=== PATIENT | female | born 1985 | race Caucasian/White ===

== ENCOUNTER → 2018-04-03 01:25 | Emergency (ER) | payer MEDICAID, SELFPAY ==
--- NOTE | 2018-04-03 01:25 | DT_ITS ---
This patient was seen during an EMR downtime April 02, 2018 - April 09, 2018. This patient may have a combination of paper and electronic documentation or all paper documentation. All documentation is viewable within the e-chart portion of [facility] for each patient visit.
== END ==
PROVIDERS: Emergency Provider Emergency Medicine
DX: M25.531 Pain in right wrist (principal); M25.532 Pain in left wrist; F17.210 Nicotine dependence, cigarettes, uncomplicated
CPT/HCPCS: 99282

== ENCOUNTER 2018-04-22 21:26 | Emergency (ER) | payer MEDICAID, SELFPAY ==
[2018-04-22 21:27] VITALS: BP 134/76; PULSE 85; RESP 18; TEMP 36.7; O2SAT 97; BMI 33.6
--- NOTE | 2018-04-22 22:22 | ED.DCSUM_ITS ---
- ER Visit Summary Date of Service: 04/22/18 Chief Complaint: Cough, sore throat History of Present Illness: The patient is a 32 F presents to the emergency department cough and sore throat. Patient had symptoms for the past 3 days. She is a mild sore throat and productive cough. She denies any fevers but has had chills and sweats. The patient does smoke but denies any history of lung disease. She has had no shortness of breath or chest pain. She denies orthopnea or weight gain. Physical Examination: Vital signs reviewed General: Well-nourished, well-developed Head: Normocephalic, atraumatic Eyes: Pupils equal and reactive, extraocular muscles intact Neck, supple, no lymphadenopathy Heart: Regular rate and rhythm Respiratory: Mild wheezing, clear bilaterally Abdomen: Soft, nontender, nondistended, no peritoneal signs Back: Nontender Extremities: Nontender, no edema, no cords Skin: Normal color no rash Neuro: Alert and oriented, no focal or lateralizing deficits Test Results: [] Emergency Department Course and Treatment: Clinically, if the patient likely has infectious bronchitis. She is wheezing all lung sanchez. She is a productive sputum. Her posterior pharynx is widely patent. Patient be treated with azithromycin and prednisone burst. She will continue to use her inhaler at home. She will be discharged. Treatment Plan: [] Disposition: Discharge Impression: 1. Bronchitis This note was generated with [employer] dictation software. It may contain incorrect words, spelling, and punctuation that were not noted in review of the chart prior to signing ED Disposition - Plan for ED Patient: Chief Complaint: Cold Sx Instructions: ED Upper Resp Infec Abx Tx Prescriptions: Azithromycin [Zithromax] 250 mg PO DAILY #4 tab Prednisone 10 mg PO UD #33 tab Referrals: Care Physician,No Primary [Primary Care Provider] -
[2018-04-22] MEDS: Azithromycin 250 MG Tablet 500 MG PO (22:43)
[2018-04-22] MEDS: predniSONE 20 MG Tablet 60 MG PO (22:43)
[2018-04-22 22:48] VITALS: PULSE 78; RESP 14; O2SAT 100
== END 2018-04-22 23:15 | disposition home or self-care (01) ==
PROVIDERS: Emergency Provider Emergency Medicine
DX: J40 Bronchitis, not specified as acute or chronic (principal); Z72.0 Tobacco use
CPT/HCPCS: 99282

== ENCOUNTER 2024-10-23 11:15 | Inpatient (IN) | payer MEDICAID, SELFPAY ==
[2024-10-23] VITALS (16 sets, daily range): BP systolic 110–139; BP diastolic 75–100; PULSE 109–154; RESP 19–26; TEMP 36.1–37.2; O2SAT 92–97; BMI 44.1; BMI 44.4
--- NOTE | 2024-10-23 11:32 | RAD_ITS ---
INDICATION: cough EXAMINATION/TECHNIQUE: X-RAY - XR Chest 2 Views COMPARISON: No relevant prior comparison study available FINDINGS: LINES/DEVICES: None. LUNGS: There are patchy opacities throughout the left mid and lower lung. There is a 1.6 cm nodular opacity within the left midlung as well. No pneumothorax. MEDIASTINUM AND CARDIOVASCULAR STRUCTURES: Cardiac silhouette not enlarged. Central airways and mediastinal contour are unremarkable. BONES AND SOFT TISSUES: Unremarkable. RAD/Chest PA and Lateral IMPRESSION: Patchy opacities within the left mid and lower lung with an appearance suggestive of pneumonia. 1.6 cm nodular opacity within the left midlung, may be secondary to a confluence of shadows, cannot exclude underlying nodule, recommend follow-up chest radiograph in 6-[address] for further characterization. Electronically Signed: Tia So MD at 12:31 EST ,
--- NOTE | 2024-10-23 11:33 | EKG12_ITS ---
Test Reason : SOB Blood Pressure : */* mmHG Vent. Rate : 126 BPM Atrial Rate : 126 BPM P-R Int : 112 ms QRS Dur : 88 ms QT Int : 314 ms P-R-T Axes : 62 -13 28 degrees QTcB Int : 454 ms Sinus tachycardia Otherwise normal ECG Confirmed by KONG SMITH, FLACA ([id number]), newspaper editor MARKEL FRANCISCO ([id number]) on 10/25/2024 9:35:41 AM Referred By: Confirmed By: FLACA TRIANA MD
[2024-10-23] MEDS: Ipratropium/Albuterol Sulfate 3 ML AMPUL.NEB INHALATION (11:36)
--- NOTE | 2024-10-23 11:48 | ED.VIS.DYS ---
HPI History of Present Illness Chief Complaint: Shortness of Breath Informant: patient Narrative Narrative: Patient is a 39-year-old female who is currently 25 weeks (fourth ) presenting with worsening left-sided back pain, shortness of breath difficulty breathing. Patient states she developed URI symptoms about a week ago. She has had a worsening cough and shortness of breath. States she went to [facility] 2 days ago where she had two-view chest x-ray and they told her she had bronchitis but since she is she could not take anything for it. She notes that she does have albuterol inhaler and nebulizer solution which has been using at home but she did run out of her nebulizer solution. She states that she feels that she pulled a muscle so she is having increased pain with coughing. She says because of the pain she cannot cough effectively and does not feel like she is getting any sputum out. She states that she started having pain in her left side of her neck that is going into her lung anytime she takes a deep breath. Denies any fever. Denies any hemoptysis. Denies any lower abdominal discomfort, vaginal bleeding or leakage of fluid. Denies any change in activity as she is . I plan on delivering at this hospital with [facility] AGRONOMY MANAGER. Denies any history of DVT or PE. Denies any lower extremity swelling. Patient is a smoker and continues to smoke tobacco. [facility] Medical History (Updated 10/23/24 @ 15:[address] Reyna Watt, DO) Drug abuse in remission Home Medications ?Medication ?Instructions ?Recorded ?Last Taken ?Type vitamin no.49-iron 1 tab PO DAILY 10/23/24 Unknown History fum-folic acid 6.75 mg iron-200 mcg tablet (Mini ) Allergy/AdvReac Type Severity Reaction Status Date / Time codeine Allergy Itching Verified 10/23/24 11:16 tramadol HCl (From Ultram) Allergy Rash Verified 10/23/24 11:16 naproxen AdvReac Upset Verified 10/23/24 11:16 Stomach Social History (Updated 10/23/24 @ 12:03 by Ekta Cotter) household members: significant other and children Smoking Status: Current every day smoker tobacco type: cigarettes ROS ROS ED Constitutional Constitutional ED: Denies chills or fever(s) ENT ENT ED: Reports rhinorrhea and other Details: congestion ; Denies sore throat Cardiovascular Cardiovascular: Reports chest pain; Denies palpitations or racing heartbeat Respiratory/Chest Respiratory/Chest: Reports cough, dyspnea and sputum Gastrointestinal Gastrointestinal: Reports abdominal pain and other Details: Patient is complain of abdominal pain associated with frequent coughing ; Denies diarrhea, nausea or vomiting Genitourinary Genitourinary ED: Reports other Details: Denies any vaginal bleeding or leakage of fluids, 25 weeks ; Denies dysuria Musculoskeletal Musculoskeletal: Reports back pain, myalgias and neck pain Integumentary Denies rash Neurologic Neurologic: Denies paresthesias or weakness Psychiatric Psychiatric: Reports anxiety Hematologic/Lymphatic Hematologic/Lymphatic: Denies easy bleeding or easy bruising EXAM Physical Exam Const Vital Signs: 10/23/24 11:15 10/23/24 11:15 10/23/24 11:35 Temperature 97 F L Temperature Source Temporal Pulse Rate 154 H 136 H Respiratory Rate 26 H Respiratory Effort Respiratory Pattern Blood Pressure 136/100 H Blood Pressure Mean 112 Pulse Ox 94 93 Oxygen Delivery Method Room Air Room Air Oxygen Flow Rate (L/min) 10/23/24 11:35 10/23/24 12:05 10/23/24 12:18 Temperature 98.4 F Temperature Source Oral Pulse Rate 128 H 137 H Respiratory Rate 24 H 23 H Respiratory Effort Short of Breath Respiratory Pattern Tachypnea Blood Pressure 138/93 H Blood Pressure Mean 108 Pulse Ox 94 Oxygen Delivery Method Room Air Room Air Oxygen Flow Rate (L/min) 10/23/24 12:25 10/23/24 12:25 10/23/24 13:00 Temperature 98.4 F Temperature Source Oral Pulse Rate 136 H 134 H Respiratory Rate 22 H 19 H Respiratory Effort Respiratory Pattern Blood Pressure 139/76 H Blood Pressure Mean 97 Pulse Ox 93 92 Oxygen Delivery Method Room Air Nasal Cannula Oxygen Flow Rate (L/min) 2 10/23/24 14:00 Temperature 98.5 F Temperature Source Oral Pulse Rate 114 H Respiratory Rate 22 H Respiratory Effort Respiratory Pattern Blood Pressure 120/84 H Blood Pressure Mean 96 Pulse Ox 94 Oxygen Delivery Method Nasal Cannula Oxygen Flow Rate (L/min) 2 Positive well nourished and well developed General Appearance ED: well developed HEENT Reports moist mucous membranes HEENT Narrative: Mild injection of the posterior oropharynx present. No tonsillar exudate or edema appreciated atraumatic Eyes PERRL Neck supple and no JVD Resp Resp Narrative: Mild tachypnea. Coarse wet cough on exam. Rhonchorous breath sounds at the bases within expiratory wheezing present on the right. Effort and Inspection: pain with movement Cardio regular rhythm and no murmurs Rate: tachycardic GI non-tender and non-distended Extremity normal to inspection Extremity Narrative: 2+ DP pulses, 2+ radial pulses General Extremety ED: Negative for edema or tenderness General Extremity: Negative for edema Neuro oriented x3 Sensorium / Orientation: alert Speech: speech normal Psych Psych Narrative: Patient mitts to feeling very worked up because of her respiratory symptoms and also document with her significant other Mood & Affect: anxious and tearful Skin no wounds MDM MDM MDM Narrative Medical decision making narrative: Patient evaluated for increased shortness of breath, cough and chest pain associated with her coughing. Upon arrival patient has a minimally elevated blood pressure 136/100 and is tachycardic. She is 93 to 94% on room air. Patient has coarse and wheezy breath sounds and is very worked up. She has prodrome of viral symptoms and while considered PE I have a lower suspicion for this given her HPI. Patient is given DuoNeb and IV fluids. Will reevaluate see if she needs further treatment. Chest x-ray, troponin, BMP and CBC is obtained. Patient does have some improvements with DuoNeb in the ER. EKG shows sinus tachycardia. No strain pattern. Out to be x-ray reviewed by myself shows left lower lobe pneumonia. This is consistent with her presentation. Has a mild leukocytosis 11.8. Will add on a lactate given infection and tachycardia. Is given Tylenol and a dose of morphine for pain control. Will be given a second albuterol treatment. She did seem to improve somewhat with DuoNeb. Patient ordered an additional albuterol aerosol. With pain control starting a cough devonte sputum. Patient assessed positive for influenza A. She then son tell me that her 1-year-old was recently diagnosed influenza A as well. Patient does dip with her O2 saturation down to 89%. Placed on 2 L. Started on Rocephin, azithromycin, Tamiflu and given Solu-Medrol. She is ordered second liter of IV fluids. Will be admitted for further respiratory treatments, antibiotics and oxygen. She is agreeable this plan of care. I did speak with Dr. Madrigal, [facility] AGRONOMY MANAGER on-call who is agreeable with this treatment plan. I did let her know that we obtain heart tones which were normal. She states she is available for consult if the medicine team has any questions. Lab Data Attestation: I reviewed the patient's lab results. Labs: Laboratory Results - last 24 hr 10/23/24 10/23/24 11:56 12:27 WBC 11.8 H RBC 3.81 L Hgb 11.8 L Hct 34.1 L MCV 89.5 MCH 31.0 MCHC 34.6 RDW Std Deviation 42.8 RDW Coeff of Matthias 13.0 Plt Count 350 MPV 9.7 Immature Gran % (Auto) 0.500 Neut % (Auto) 86.1 H Lymph % (Auto) 10.2 L [place] % (Auto) 2.3 Eos % (Auto) 0.7 Baso % (Auto) 0.2 Absolute Neuts (auto) 10.2 H Absolute Lymphs (auto) 1.21 Nucleated RBC % 0 Sodium 135 L Potassium 3.2 L Chloride 105 Carbon Dioxide 21.0 Anion Gap 9 BUN 6 L Creatinine 0.37 L Estim Creat Clear Calc 246.85 Est GFR (MDRD) Af Amer 249 Est GFR (MDRD) Non-Af 206 BUN/Creatinine Ratio 16.2 Glucose 116 H Lactic Acid 2.0 Calcium 8.3 L Total Bilirubin 0.50 Direct Bilirubin 0.18 AST 53 H ALT 34 Alkaline Phosphatase 116 Troponin I High Sens 8 Total Protein 6.8 Albumin 2.5 L Globulin 4.3 H Radiography Chest X-Ray - ED: 2 View, Read by ED Physician, Read by Radiologist and Left Infiltrate Diagnostic Testing: Clinical Impression(s) from Imaging Studies Chest X-Ray 10/23/24 11:32 IMPRESSION: Patchy opacities within the left mid and lower lung with an appearance suggestive of pneumonia. 1.6 cm nodular opacity within the left midlung, may be secondary to a confluence of shadows, cannot exclude underlying nodule, recommend follow-up chest radiograph in 6-[address] for further characterization. Electronically Signed: Tia So MD at 12:31 EST , Rhythm Strip Rhythm Strip: Sinus Tach Rate: 126 Ectopy: None EKG Initial EKG: Attestation: I personally reviewed and interpreted this EKG as follows: Interpretation: Sinus Tachycardia Comments: Sinus tachycardia rate of 126 bpm Normal axis Normal intervals Normal ST segments Compared to prior EKG from 08/19/2016 patient is now tachycardic Management Discussion w/another healthcare provider: Hospitalist and [facility] Discharge Plan Triage Chief Complaint: Shortness of Breath ED Provider: Reyna Watt Dx/Rx/DC Orders Clinical Impression: Influenza A, Left lower lobe pneumonia, Tachycardia, 25 weeks gestation of Primary Care Provider: Care Physician,No Primary Disposition Disposition: Acute Care Hospital [facility]
[2024-10-23] MEDS: 0.9% Normal Saline (1000mL) 1,000 ML 999 ML IV ×2 (11:54→14:59)
[2024-10-23 12:06] LABS: Absolute Lymphocyte Count 1.21 X10^3/uL (0.83-4.51); Absolute Neutrophil Count 10.2 X10^3/uL (2.0-7.7); Basophil# 0.02 X10^3/uL; Basophil% 0.2 % (0-1); Eosinophil# 0.08 X10^3/uL; Eosinophils% 0.7 % (0-5); Hematocrit 34.1 % (37-47); Hemoglobin 11.8 g/dL (12.0-15.0); Lymphocyte # 1.21 X10^3/ul (0.83-4.51); Lymphocyte % 10.2 % (19-41); Mean Corp Hgb Conc 34.6 g/dL (32-36); Mean Corpuscular Volume 89.5 fL (81-99); Mean Platelet Vol. 9.7 fl (6.2-12.0); Monocyte# 0.27 X10^3/uL; Monocyte% 2.3 % (0-10); NRBC Flagged by Analyzer 0 % (0-5); Neutrophil % 86.1 % (47-70); Platelet Count 350 K/mm3 (150-450); RBC Distribution Width SD 42.8 fl (35.1-43.9); Red Blood Count 3.81 M/mm3 (4.2-5.4); White Blood Count 11.8 K/mm3 (4.4-11.0)
[2024-10-23] MEDS: Acetaminophen 325 MG Tablet 650 MG PO (12:20)
[2024-10-23 12:21] LABS: AST(SGOT) 53 U/L (15-37); Alanine Aminotransfer ALT/SGPT 34 U/L (13-56); Albumin, Serum 2.5 g/dL (3.2-5.0); Alkaline Phosphatase 116 U/L (45-117); Anion Gap 9 (5-15); BUN 6 mg/dL (7-18); BUN/Creat Ratio 16.2 RATIO (10-20); Bilirubin, Direct 0.18 mg/dL (0.00-0.30); Calcium,Total 8.3 mg/dL (8.5-10.1); Chloride 105 mmol/L (98-107); Creatinine, Serum 0.37 mg/dL (0.55-1.02); EST Glomerular Filtration Rate 206 mL/min (>60); Est Glom Filt Rate - Afr Amer 249 mL/min (>60); Estimated Creatinine Clearance 246.85 ml/min; Globulin 4.3 g/dL (2.2-4.2); Glucose 116 mg/dL (74-106); Potassium 3.2 mmol/L (3.5-5.1); Protein, Total 6.8 g/dL (6.4-8.2); Sodium Level 135 mmol/L (136-145); Troponin-I HS 8 pg/mL (3.0-54.0)
[2024-10-23] MEDS: Albuterol 2.5 MG/3 ML VIAL.NEB. INHALATION ×2 (12:25→23:35)
[2024-10-23] MEDS: morphine 8 MG/ML Syringe 6 MG IV (12:32)
[2024-10-23] MEDS: Ondansetron 4 MG/2 ML Vial IV (12:32)
--- NOTE | 2024-10-23 12:42 | ED.RN ---
Patient placed on 2L NC per Dr. Watt's VO.
[2024-10-23] MEDS: Ceftriaxone 1 GM/50 ML BAG IV (13:25)
[2024-10-23] MEDS: Oseltamivir Phosphate 75 MG Capsule PO (13:25)
[2024-10-23] MEDS: MethylPREDNISolone 125 MG/2 ML Vial IV (13:25)
--- NOTE | 2024-10-23 13:26 | ED.RN ---
Patient given cup for sputum culture and instructed on how to give sample when able to
--- NOTE | 2024-10-23 14:12 | HP.PCM.HOS_ITS ---
HPI - General General Date of Admission: 10/23/24 Date of Service: 10/23/24 Chief Complaint: Shortness of breath HPI Narrative BASSAM OSBORN, is a 39 F with history of chronic nicotine use [half pack a day], prior homelessness, prior history of drug abuse presently in the second trimester, who presents to the ED with concerns regarding progressive shortness of breath, cough and chest pain for the last 3 to 4 days. She has been ongoing cough, with associated chest pain mostly over her left chest and back, aggravated by coughing for the last 3 to 4 days. She previously visited [place] ED for similar complaints, evaluation for pneumonia was negative, no swabs were done, she was discharged with albuterol inhaler. She has been using the inhaler but without any improvement. Her 1-year-old daughter was diagnosed with influenza A infection 2 days back Today she presented to the ED given concerns of progressive shortness of breath, and discomfort. Social status: Lives with her fianc?, has a history of prior homelessness, has 3 kids, the elder 2 kids have been adopted to other families, she has 1 child At the time of presentatin in the ED, Blood pressure 139/76, pulse 134, respiratory rate 19, oxygen saturation 92% on 2 L nasal cannula, WBC 11.8, hemoglobin 11.8, platelet 350, sodium 135, potassium 3.2, BUN 6, creatinine 0.3, glucose 116, calcium 8.3, AST 53, ALT 34, albumin 2.5, globulin 4.3 [facility] Medical History (Updated 10/23/24 @ 14:[address] Chirag Diaz MD) Drug abuse in remission Home Medications ?Medication ?Instructions ?Recorded ?Last Taken ?Type vitamin no.49-iron 1 tab PO DAILY 10/23/24 Unknown History fum-folic acid 6.75 mg iron-200 mcg tablet (Mini ) Allergy/AdvReac Type Severity Reaction Status Date / Time codeine Allergy Itching Verified 10/23/24 11:16 tramadol HCl (From Ultram) Allergy Rash Verified 10/23/24 11:16 naproxen AdvReac Upset Verified 10/23/24 11:16 Stomach Social History (Updated 10/23/24 @ 12:03 by Ekta Cotter) household members: significant other and children Smoking Status: Current every day smoker tobacco type: cigarettes ROS Review of Systems ROS Unobtainable: Denies due to encephalopathy, due to endotracheal tube, due to mental condition, due to mental status or other Constitutional Constitutional: Reports anorexia and fatigue Eyes Eyes: Denies blurry vision, change in eye color, change in vision, discharge from eye(s), double vision, erythema, eye pain, loss of vision or other ENT HEENT: Denies abnormal hearing, dysphagia, ear pain, epistaxis, headache(s), hearing loss, nasal congestion, nasal discharge, post nasal drip, sinus pressure, sore throat or other Cardiovascular Cardiovascular: Denies chest pain, claudication, dyspnea on exertion, edema, lightheadedness, orthopnea, palpitations, paroxysmal nocturnal dyspnea, rapid heart rate, syncope or other Respiratory/Chest Respiratory/Chest: Reports excessive phlegm production, productive cough, shortness of breath at rest and shortness of breath with exertion Gastrointestinal Gastrointestinal: Denies abdominal pain, coffee ground emesis, constipation, diarrhea, dyspepsia, hematemesis, hematochezia, loose stools, melena, nausea, vomiting or other Genitourinary Genitourinary: Denies burning urination, difficulty urinating, dysuria, hematuria, nocturia, urinary frequency, urinary hesitancy, urinary incontinence, urinary urgency or other Musculoskeletal Musculoskeletal: Denies arthralgias, back pain, joint pain, joint stiffness, joint swelling, myalgias, neck pain or other Neurologic Neurologic: Denies abnormal gait, abnormal speech, confusion, disequilibrium, dizziness, focal weakness, headache(s), numbness, paresthesias, seizure-like activity, seizures, syncope, tingling, tremor(s) or other Psychiatric Psychiatric: Denies anxiety, depression, homicidal ideation, suicidal ideation or other Endocrine Endocrinology: Denies change in body appearance, cold intolerance, excessive sweating, heat intolerance, polydipsia, polyuria or other Vital Signs Vital Signs Vital Signs: 10/23/24 11:15 10/23/24 11:15 10/23/24 11:35 Temperature 97 F L Temperature Source Temporal Pulse Rate 154 H 136 H Respiratory Rate 26 H Respiratory Effort Respiratory Pattern Blood Pressure 136/100 H Blood Pressure Mean 112 Pulse Ox 94 93 Oxygen Delivery Method Room Air Room Air Oxygen Flow Rate (L/min) 10/23/24 11:35 10/23/24 12:05 10/23/24 12:18 Temperature 98.4 F Temperature Source Oral Pulse Rate 128 H 137 H Respiratory Rate 24 H 23 H Respiratory Effort Short of Breath Respiratory Pattern Tachypnea Blood Pressure 138/93 H Blood Pressure Mean 108 Pulse Ox 94 Oxygen Delivery Method Room Air Room Air Oxygen Flow Rate (L/min) 10/23/24 12:25 10/23/24 12:25 10/23/24 13:00 Temperature 98.4 F Temperature Source Oral Pulse Rate 136 H 134 H Respiratory Rate 22 H 19 H Respiratory Effort Respiratory Pattern Blood Pressure 139/76 H Blood Pressure Mean 97 Pulse Ox 93 92 Oxygen Delivery Method Room Air Nasal Cannula Oxygen Flow Rate (L/min) 2 Weight Weight: 248 lb 14.43 oz Body Mass Index (BMI) 44.1 Physical Exam HEENT normocephalic Eyes PERRL Neck no lymphadenopathy Resp normal respiratory effort, no retractions and no use of accessory muscles Resp Narrative: no crepitations or added sounds heard Cardio regular rate and regular rhythm GI normal to inspection, nondistended, normoactive bowel sounds Extremity normal to inspection Neuro oriented x3 and CN's II-XII intact bilaterally Psych affect normal Results Medical Records Data Attestation: I reviewed the patient's medical records Lab / Micro Data Attestation: I reviewed the patient's lab results. 10/23/24 11:56 10/23/24 11:56 Labs: Laboratory Results - last 24 hr 10/23/24 11:56: WBC 11.8 H, RBC 3.81 L, Hgb 11.8 L, Hct 34.1 L, MCV 89.5, MCH 31.0, MCHC 34.6, RDW Std Deviation 42.8, RDW Coeff of Matthias 13.0, Plt Count 350, MPV 9.7, Immature Gran % (Auto) 0.500, Neut % (Auto) 86.1 H, Lymph % (Auto) 10.2 L, [place] % (Auto) 2.3, Eos % (Auto) 0.7, Baso % (Auto) 0.2, Absolute Neuts (auto) 10.2 H, Absolute Lymphs (auto) 1.21, Nucleated RBC % 0, Sodium 135 L, Potassium 3.2 L, Chloride 105, Carbon Dioxide 21.0, Anion Gap 9, BUN 6 L, Creatinine 0.37 L, Estim Creat Clear Calc 246.85, Est GFR (MDRD) Af Amer 249, Est GFR (MDRD) Non-Af 206, BUN/Creatinine Ratio 16.2, Glucose 116 H, Calcium 8.3 L, Total Bilirubin 0.50, Direct Bilirubin 0.18, AST 53 H, ALT 34, Alkaline Phosphatase 116, Troponin I High Sens 8, Total Protein 6.8, Albumin 2.5 L, Globulin 4.3 H 10/23/24 12:27: Lactic Acid 2.0 Micro: Microbiology 10/23/24 11:56 Mucosa - Nose SARS-CoV-2, Influenza & RSV (PCR) - Final Influenzae A Rhythm Strip Rhythm Strip: Sinus Tach Rate: 126 Ectopy: None Imaging Radiology Impression Chest X-Ray 10/23/24 11:32 IMPRESSION: Patchy opacities within the left mid and lower lung with an appearance suggestive of pneumonia. 1.6 cm nodular opacity within the left midlung, may be secondary to a confluence of shadows, cannot exclude underlying nodule, recommend follow-up chest radiograph in 6-[address] for further characterization. Electronically Signed: Tia So MD at 12:31 EST , Assessment & Plan Assessment/Plan (1) Influenza A: PLAN: Plan 39-year-old female, in secondary MrBuddy Alba presents to the ED with concerns regarding progressive shortness of breath and was not found to have influenza A infection. Her 1-year-old daughter also has similar infection, given her timeline of presentation [symptoms started more than a week back and she presented [place] ED at the time] her presentation could be due to secondary infection with resulting deterioration of her symptoms. She is also having acute hypoxic respiratory failure and requiring oxygen supplementation. She is being admitted for further management for the same. 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
[2024-10-23] MEDS: Azithromycin 500 MG in 0.9% Normal Saline (250mL Bag) 250 ML 250 MG IV (14:20)
[2024-10-23 16:27] LABS: Reflex Lactate? Y
[2024-10-23] MEDS: Ensure Plus High Protein 120 ML LIQUID PO (17:11)
[2024-10-23 17:20] LABS: Lactic Acid 1.9 mmol/L (0.4-1.9)
[2024-10-23] MEDS: Ketorolac 15 MG/ML Vial IV (19:08)
[2024-10-23] MEDS: guaiFENesin 1,200 MG Tablet 1200 MG PO (22:06)
[2024-10-24] VITALS (29 sets, daily range): BP systolic 96–152; BP diastolic 48–91; PULSE 95–129; RESP 19–32; TEMP 36–37.1; O2SAT 90–98
[2024-10-24] MEDS: Albuterol 2.5 MG/3 ML VIAL.NEB. INHALATION ×2 (04:35→07:06)
[2024-10-24 05:09] LABS: Absolute Lymphocyte Count 1.14 X10^3/uL (0.83-4.51); Absolute Neutrophil Count 15.3 X10^3/uL (2.0-7.7); Basophil# 0.05 X10^3/uL; Basophil% 0.3 % (0-1); Eosinophil# 0.02 X10^3/uL; Eosinophils% 0.1 % (0-5); Hemoglobin 10.5 g/dL (12.0-15.0); Lymphocyte # 1.14 X10^3/ul (0.83-4.51); Lymphocyte % 6.8 % (19-41); Mean Corp Hgb Conc 33.9 g/dL (32-36); Mean Corpuscular Hgb 30.4 pg (27.0-32.0); Mean Corpuscular Volume 89.9 fL (81-99); Mean Platelet Vol. 9.9 fl (6.2-12.0); Monocyte# 0.18 X10^3/uL; Monocyte% 1.1 % (0-10); NRBC Flagged by Analyzer 0 % (0-5); Neutrophil # 15.31 X10^3/uL (2.7-7.7); Neutrophil % 91.4 % (47-70); POSITIVE MORPHOLOGY YES; Platelet Count 302 K/mm3 (150-450); RBC Distribution Width CV 13.1 % (11.6-14.6); RBC Distribution Width SD 43.1 fl (35.1-43.9); Red Blood Count 3.45 M/mm3 (4.2-5.4); White Blood Count 16.8 K/mm3 (4.4-11.0)
[2024-10-24 05:38] LABS: AST(SGOT) 33 U/L (15-37); Alanine Aminotransfer ALT/SGPT 27 U/L (13-56); Albumin, Serum 2.2 g/dL (3.2-5.0); Alkaline Phosphatase 87 U/L (45-117); Anion Gap 8 (5-15); BUN 5 mg/dL (7-18); BUN/Creat Ratio 14.3 RATIO (10-20); Bilirubin, Direct 0.21 mg/dL (0.00-0.30); Calcium,Total 8.7 mg/dL (8.5-10.1); Chloride 104 mmol/L (98-107); Creatinine, Serum 0.35 mg/dL (0.55-1.02); EST Glomerular Filtration Rate 221 mL/min (>60); Est Glom Filt Rate - Afr Amer 268 mL/min (>60); Estimated Creatinine Clearance 262.25 ml/min; Globulin 4.2 g/dL (2.2-4.2); Glucose 129 mg/dL (74-106); Magnesium 1.4 mg/dL (1.6-2.6); Phosphorus 2.6 mg/dL (2.5-4.9); Protein, Total 6.4 g/dL (6.4-8.2); Sodium Level 133 mmol/L (136-145); Thyroid Stim Hormone (TSH) 0.613 uIU/mL (0.358-3.740)
[2024-10-24 05:54] LABS: Prothrombin Time (Protime)PT. 13.1 SECONDS (11.7-14.9)
--- NOTE | 2024-10-24 06:35 | PCM.PN.HOSP ---
Reason for Visit Reason for Visit: Diagnoses Influenza due to other identified influenza virus with other respiratory manifestations (10/23/24) Subjective Subjective Patient with continued dyspnea, productive cough, fatigue and malaise since admission. She states she does not really feel improved since her initial arrival and does remain mildly tachycardic. Discussed plan of care which included antibiotic therapy continuation given elevated procalcitonin with suspected superimposed bacterial pneumonia on top of influenza. Discussed given timeline further Tamiflu is not clinically appropriate at this time to which she was amenable. She does state that [place] and [place] have a place to stay as previously she had been homeless. Patient denies fevers, chills, abdominal pain. In the ED workup included T97, heart rate initially 154, BP 136/100, respiratory rate 26, 94% on room air with repeat vital signs in the ED T98.4, heart 134, BP 120 #76, respiratory rate 19, 92% on room air, CBC with WBC 11.8, hemoglobin 0.8, MCV 89.5, platelet 350 with left shift, CMP with sodium 135, potassium 3.2, BUN/creatinine 6/0.37, glucose 116, initial lactic acid 2.0 with repeat 1.9, hepatic profile with T. bili 0.50, D bili 0.18, AST/ALT 53/34, alk phos 116, troponin 8, rapid SARS COVID/influenza/RSV PCR with positive influenza A, chest x-ray with patchy opacities within the left mid and lower lung with appearance of pneumonia, 1.6 cm nodular opacity within the left midlung possibly secondary to confluence of shadows with recommended follow-up chest radiograph in 6 to [address] for further characterization. In the ED patient administered 2 L normal saline, IV Rocephin and IV azithromycin, DuoNeb therapy, Solu-Medrol 100 mg IV x 1, morphine 6 mg IV x 1, Zofran 4 mg IV x 1 as well as Tamiflu 75 mg p.o. x 1. Patient does report that activity has been similar and unchanged. She reports planned delivery at [facility] with [facility]. Objective Data Objective Data Vital Signs: Vital Signs Temp Pulse Resp BP Pulse Ox O2 Del Method O2 Flow Rate 98.2 F 116 H 22 H 129/72 H 95 Nasal Cannula 3 10/24/24 04:59 10/24/24 04:59 10/24/24 04:59 10/24/24 04:59 10/24/24 04:59 10/24/24 04:59 10/24/24 04:59 Oxygen Flow Rate (L/min) 3 Oxygen Delivery Method Nasal Cannula Weight: 251 lb Body Mass Index (BMI) 44.4 Intake & Output: Intake and Output for Last 24 Hours 10/22/24 10/23/24 10/24/24 23:59 23:59 23:59 Intake Total 3505 / 3505 225 / 225 Balance 3505 / 3505 225 / 225 Lab / Micro Data 10/24/24 04:14 10/24/24 04:14 Labs: Laboratory Results - last 24 hr 10/23/24 11:56: WBC 11.8 H, RBC 3.81 L, Hgb 11.8 L, Hct 34.1 L, MCV 89.5, MCH 31.0, MCHC 34.6, RDW Std Deviation 42.8, RDW Coeff of Matthias 13.0, Plt Count 350, MPV 9.7, Immature Gran % (Auto) 0.500, Neut % (Auto) 86.1 H, Lymph % (Auto) 10.2 L, [place] % (Auto) 2.3, Eos % (Auto) 0.7, Baso % (Auto) 0.2, Absolute Neuts (auto) 10.2 H, Absolute Lymphs (auto) 1.21, Nucleated RBC % 0, Sodium 135 L, Potassium 3.2 L, Chloride 105, Carbon Dioxide 21.0, Anion Gap 9, BUN 6 L, Creatinine 0.37 L, Estim Creat Clear Calc 246.85, Est GFR (MDRD) Af Amer 249, Est GFR (MDRD) Non-Af 206, BUN/Creatinine Ratio 16.2, Glucose 116 H, Calcium 8.3 L, Total Bilirubin 0.50, Direct Bilirubin 0.18, AST 53 H, ALT 34, Alkaline Phosphatase 116, Troponin I High Sens 8, Total Protein 6.8, Albumin 2.5 L, Globulin 4.3 H 10/23/24 12:27: Lactic Acid 2.0 10/23/24 16:34: Lactic Acid 1.9 10/24/24 04:14: PT 13.1, INR 1.0, Sodium 133 L, Potassium 3.0 L, Chloride 104, Carbon Dioxide 22.0, Anion Gap 8, BUN 5 L, Creatinine 0.35 L, Estim Creat Clear Calc 262.25, Est GFR (MDRD) Af Amer 268, Est GFR (MDRD) Non-Af 221, BUN/Creatinine Ratio 14.3, Glucose 129 H, Calcium 8.7, Phosphorus 2.6, Magnesium 1.4 L, Total Bilirubin 0.60, Direct Bilirubin 0.21, AST 33, ALT 27, Alkaline Phosphatase 87, Total Protein 6.4, Albumin 2.2 L, Globulin 4.2, TSH 0.613 Micro: Microbiology 10/23/24 16:40 Mucosa - Nasopharyngeal Coronavirus COVID-19 PCR - Final 10/23/24 11:56 Mucosa - Nose SARS-CoV-2, Influenza & RSV (PCR) - Final Influenzae A Radiography Diagnostic Testing: Radiology Impression Chest X-Ray 10/23/24 11:32 IMPRESSION: Patchy opacities within the left mid and lower lung with an appearance suggestive of pneumonia. 1.6 cm nodular opacity within the left midlung, may be secondary to a confluence of shadows, cannot exclude underlying nodule, recommend follow-up chest radiograph in 6-[address] for further characterization. Electronically Signed: Tia So MD at 12:31 EST , Rhythm Strip Rhythm Strip: Sinus Tach Rate: 126 Ectopy: None Physical Exam Narrative Physical Examination: General: Awake, alert, oriented x 3 and cooperative, seated upright in the OK bed, fatigued and ill-appearing. Skin: Normal color, normal turgor, no icterus, no cyanosis except occasional stage ecchymoses HEENT: AT/NC, EOMI, PERRLA, dry MM. Lungs: Significantly diminished, greater bases, coarse, rhonchorous, no current wheezing. Heart: Mildly tachycardic with regular rhythm; no gallop, rub audible. Abdomen: Soft, morbidly obese, 25 weeks , no obvious tenderness to palpation, mildly hyperactive BS, no discerned distention. Extremities: No cyanosis, clubbing, or edema. Neurological: Patient awake, alert, oriented as noted, cognitive function intact; pupils equally reactive to light and accommodation, cranial nerves grossly normal, moving all 4 extremities, no focal deficits, strength moderately to severely globally decreased Psychiatric: Affect appears fatigued, ill-appearing, no acute evidence of depressive or anxiety feelings but does have underlying history. Assessment & Plan Assessment/Plan (1) Left lower lobe pneumonia: PLAN: Plan The patient is a 39 y/o F w/ PMHx: Morbid obesity, Anxiety and Depression, Hx Hepatitis, Former Polysubstance abuse, Tobacco use, currently 25 weeks who presents to [facility] ED on 10/23/2024 with history of developing URI type symptoms approximately 1 week prior with worsening cough and dyspnea with onset of left-sided pleuritic discomfort with outpatient ED evaluation at [facility] 2 days prior with chest x-ray with bronchitis diagnosis at that time with encourage continued albuterol inhaler which she has been using however she did run out of her nebulizing solution with increasing pain and cough with no fevers but given ongoing symptoms prompted eventual ED evaluation to be cautious. #1. Acute Hypoxia secondary to L mid and LLL Pneumonia secondary to Acute Influenza A Viral Syndrome and concern for superimposed CAP: Admitted to medical surgical floor, will maintain on oxygen with wean as tolerated to room air, will continue ATC budesonide therapy, PRN albuterol, maintained on IV Solu-Medrol, given timeline of symptoms will defer further Tamiflu usage, encourage HOB, IS parameters, sputum culture requested, full respiratory viral panel requested, urine antigens requested, procalcitonin elevated with patient currently maintained on IV rocephin and azithromycin. #2. Hyponatremia, suspected hypovolemic component: Admission CMP 135, chloride 105, given presentation aggressively hydrated in the ED, 10/24/24 sodium 133, continue to trend. #3. Hypokalemia, Hypomagnesemia: Admission K+ 3.2, magnesium level 1.4 with supplementation being administered, 10/24/24 potassium 3.0 with additional supplementation administered, plan to repeat mag level in AM and CMP in AM. #4. Incidental possible lung nodule opacity: CT scan with 1.6 cm nodule opacity within the left midlung, possibly secondary to confluence of shadows, will need follow-up radiograph versus CT in 6 to 8 weeks. #5. , 25 weeks: Complicates presentation, customer sales consultant will continue to follow with routine assessments per their service, continue vitamins. #6. Normocytic anemia: Admission hemoglobin 11.8, MCV 89.5, previous normal, possibly related with current , 10/24/25 hemoglobin [], will continue to trend CBC. #7. Former polysubstance abuse with history of hepatitis: Encourage continued clean status, UDS requested to be cautious, clarifying hepatitis type. #8. Tobacco Abuse: Encouraged cessation, inpatient consultation per RT, NR if desired. #9. Anxiety and depression: Per current list does not appear to be on any regimen, given history and status as well as history of homelessness very high risk, encourage continued follow-up and evaluation/counseling as needed. #10. Morbid Obesity: Weight loss and lifestyle changes encouraged, nutrition consulted. #11. DVT prophylaxis: Lovenox. Charges/Coding Visit Charges Inpatient E&M: 07430 Subs Hosp L3
[2024-10-24 06:48] LABS: Differential Indicated SCAN CRITERIA MET
[2024-10-24 06:49] LABS: Differential Comment SCANNED
[2024-10-24 07:27] LABS: Procalcitonin 1.59 ng/mL (0.00-0.09)
[2024-10-24] MEDS: Potassium Chloride Oral Tablet 20 MEQ 40 MEQ PO (07:45)
[2024-10-24] MEDS: Magnesium Sulfate 2 GM in Dextrose 5%-Water (100mL Bag) 100 ML IV (07:46)
[2024-10-24] MEDS: Prenatal Vits Tablet 1 TABLET PO (07:48)
[2024-10-24] MEDS: guaiFENesin 1,200 MG Tablet 1200 MG PO ×2 (07:49→20:48)
[2024-10-24] MEDS: Enoxaparin 40 MG/0.4 ML Syringe SC (07:50)
[2024-10-24] MEDS: Ensure Plus High Protein 120 ML LIQUID PO ×3 (07:57→17:08)
--- NOTE | 2024-10-24 09:38 | CASEMGMT ---
LANETTE MILLS Assessment: Face to Face with pt for initial transition planning/care coordination assessment. LANETTE MILLS introduced self and role at [facility], pt voices understanding and consents to assessment. Pt is A&O x4 and answers all questions appropriately at this time. Pt lying in bed in no distress, fell asleep a couple times throughout assessment but easily woke up when LANETTE MILLS said Pt name. Care providers, pharmacy, and demographics verified/updated. Strata: 1 Admitting Dx: SOB PCP: Roly, provided list of local providers. Specialists: [facility], pt is . Preferred Pharmacy: [facility] Insurance: [employer] Prescription Benefit: yes LNOK: HARJIT, Jace Living Arrangements: Pt lives with significant other and dad in a 1 story home with 3 steps to enter. ADLs: Pt states I at baseline. Transportation: Pt fiance provides transportation. DME: Denies Hx of HHC/SNF: Denies Hx of Pt states no concerns with going home at time of dc. Pt currently on O2, does not use oxygen at home. LANETTE MILLS provided verbal list of local DME provider, Pt chose [facility] for O2 needs if needed at time of DC. Pt states uses tobacco and smokes marijuana. Pt is interested in cessation programs. Notified SW. Pt states Pt states no further concerns/needs. CM to follow. Advised pt to ask CM if any further question/concerns/needs arise, voices understanding. Pt Goal: Home Plan: Home, follow for O2 needs. David GAMA CM
[2024-10-24] MEDS: Ceftriaxone 2 GM in 0.9% Normal Saline (50mL MB+) 50 ML IV (09:53)
[2024-10-24] MEDS: 0.9% Normal Saline (1000mL) 1,000 ML 100 ML IV (09:53)
[2024-10-24] MEDS: Azithromycin 500 MG in 0.9% Normal Saline (250mL Bag) 250 ML 250 MG IV (10:43)
--- NOTE | 2024-10-24 12:00 | CASEMGMT ---
LANETTE MILLS into Pt room to discuss smoking cessation, Pt was crying stating she's in pain. LANETTE MILLS informed floor nurse of Pt discomfort and asked to follow up with Pt.
[2024-10-24 13:01] LABS: Amphetamine Urine VISTA POSITIVE (<1000 ng/mL); Barbiturate Urine VISTA NEGATIVE (< 200 ng/mL); Benzodiazepine Urine VISTA NEGATIVE (< 200 ng/mL); Cocaine Urine VISTA NEGATIVE (< 300 ng/mL); Ecstacy Urine VISTA NEGATIVE (< 500 ng/mL); Methadone Urine VISTA NEGATIVE (< 300 ng/mL); PCP Urine VISTA NEGATIVE (< 25 ng/mL); THC Urine VISTA POSITIVE (< 50 ng/mL); Vista UDS pH Range 6
[2024-10-24] MEDS: Acetaminophen 325 MG Tablet 650 MG PO ×2 (13:03→20:09)
[2024-10-24] MEDS: 0.9% Normal Saline (1000mL) 1,000 ML 999 ML IV (13:56)
--- NOTE | 2024-10-24 14:45 | NURSING ---
FHT 156 via doppler. Checked FHT against maternal radial pulse.
[2024-10-24] MEDS: Vancomycin HCl 2,000 MG in 0.9% Normal Saline (500mL Bag) 500 ML 250 MG IV (15:50)
--- NOTE | 2024-10-24 16:35 | CASEMGMT ---
Social Work Received update from nursing that patient is 25 weeks and positive for amphetamines and marijuana. Patient also with history of polysubstance abuse. Chart reviewed and noted patient also has history of depression and anxiety. There is notation in the chart that patient has birthed 3 other children, with 2 being adopted and the third child is in patient's custody. Presented to patient's room in order to check in on how patient is doing overall, check in on support system, need for additional resources for mental health and substance use; assess need for linkage to additional resources and services in the community. Patient was sleeping soundly however, and did not wake up when SW presented to the room. Plan: SW to follow and will attempt to meet with patient at a later time for assessment for support and resource needs. -LUCRECIA Albarado
--- NOTE | 2024-10-24 16:50 | PCM.RX.CS ---
Consult Antibiotic Management Pharmacy has been consulted to manage selected antibiotic: Vancomycin Type of Intervention Type of Consult: New start Suspected Infection Suspected Infection: Pneumonia Prior Doses of Antibiotics Prior Doses of Antibiotics Received/Current Regimen: Vancomycin 2000 mg IV x 1 given 10/24/24 @ 1550 Labs Labs: Sodium 133 mmol/L (136-145) L 10/24/24 04:14 Potassium 3.0 mmol/L (3.5-5.1) L 10/24/24 04:14 Chloride 104 mmol/L (98-107) 10/24/24 04:14 Carbon Dioxide 22.0 mmol/L (21.0-32.0) 10/24/24 04:14 Anion Gap 8 (5-15) 10/24/24 04:14 BUN 5 mg/dL (7-18) L 10/24/24 04:14 Creatinine 0.35 mg/dL (0.55-1.02) L 10/24/24 04:14 Est GFR (MDRD) Af Amer 268 mL/min (>60) 10/24/24 04:14 Est GFR (MDRD) Non-Af 221 mL/min (>60) 10/24/24 04:14 BUN/Creatinine Ratio 14.3 RATIO (10-20) 10/24/24 04:14 Glucose 129 mg/dL (74-106) H 10/24/24 04:14 Microbiology Microbiology: Microbiology 10/24/24 07:15 Mucosa - Nasopharyngeal Respiratory Panel (PCR) - Final Influenza A (Subtype H1) 10/24/24 09:32 Urine, Clean Catch Legionella Antigen - Final 10/24/24 09:32 Urine, Clean Catch Streptococcus pneumoniae Antigen (M - Final 10/23/24 16:40 Mucosa - Nasopharyngeal Coronavirus COVID-19 PCR - Final 10/23/24 11:56 Mucosa - Nose SARS-CoV-2, Influenza & RSV (PCR) - Final Influenzae A Dosing Weight Weight used for dosin kg Estimated Creatinine Clearance Estimated Creatinine Clearance: ~ 260 Goal Trough Goal Trough: 15-20 mcg/mL Pharmacy Plan for Drug Dosing Pharmacy Plan for Drug Dosing: Vancomycin 2000 mg IV x 1 followed by 1500 mg Q8H Pharmacy Service will continue to monitor and adjust dosing as required. Follow-Up Labs Follow-Up Labs: Trough: Vancomycin Date/Time Labs Ordered Labs to be done on [date and time ordered]: 10/25/24 @ 1530
[2024-10-24 17:50] LABS: Allen Test Positive; Base Excess 0 mmol/L (-2 to +2); Bicarbonate 23.4 mmol/L (22-26); Blood Gas Specimen Type ART; Mode Not entered; O2 Delivery Device Cannula; PO2 48 mmHG (75-100); SITE L Radial; SO2 87 % (95-99); Total Carbon Dioxide 24 mmol/L; pCO2 32.2 mmHg (35-45); pH 7.47 (7.35-7.45)
--- NOTE | 2024-10-24 17:50 | EX.PCM.CONOB ---
Assessment & Plan (1) 26 weeks gestation of : (2) Tachycardia: (3) Left lower lobe pneumonia: (4) Influenza A: (5) Multigravida of advanced maternal age in second trimester: (6) History of section complicating : (7) Hepatitis: (8) Smoker: HPI Consult Data Date of Consult: 10/24/24 HPI Narrative HPI Narrative: BASSAM OSBORN, is a 39 F who presented to ED with cough, congestion, SOB, and difficulty breathing. She is currently 26.1 weeks gestation and has been seen in office for one visit thus far. [facility] Medical History (Updated 10/24/24 @ 18:05 by Jenifer Schuler CNM) Anxiety Depression Hepatitis Smoker Drug abuse in remission Home Medications ?Medication ?Instructions ?Recorded ?Last Taken ?Type vitamin no.49-iron 1 tab PO DAILY 10/23/24 Unknown History fum-folic acid 6.75 mg iron-200 mcg tablet (Mini ) Allergy/AdvReac Type Severity Reaction Status Date / Time codeine Allergy Itching Verified 10/23/24 11:16 tramadol HCl (From Ultra) Allergy Rash Verified 10/23/24 11:16 naproxen AdvReac Upset Verified 10/23/24 11:16 Stomach Surgical History (Updated 10/24/24 @ 18:05 by Jenifer Schuler CNM) History of cholecystectomy History of appendectomy Social History (Updated 10/23/24 @ 12:03 by Ekta Cotter) household members: significant other and children Smoking Status: Current every day smoker tobacco type: cigarettes Vital Signs Vital Signs Vital Signs: 10/23/24 19:31 10/23/24 19:55 10/23/24 22:00 Temperature Temperature Source Pulse Rate 118 H Pulse Strength Respiratory Rate Respiratory Effort Normal Respiratory Depth Normal Respiratory Pattern Normal Blood Pressure Blood Pressure Mean Blood Pressure Source Blood Pressure Position Blood Pressure Location Pulse Ox 94 Oxygen Delivery Method Nasal Cannula Nasal Cannula Oxygen Flow Rate (L/min) 3 3 10/23/24 22:00 10/23/24 22:09 10/23/24 23:35 Temperature 98.9 F Temperature Source Oral Pulse Rate 109 H 116 H Pulse Strength Normal (2+) Respiratory Rate 20 H 26 H Respiratory Effort Respiratory Depth Respiratory Pattern Tachypnea Blood Pressure 137/87 H Blood Pressure Mean 103 Blood Pressure Source Monitor Blood Pressure Position Sitting Blood Pressure Location Left Arm Pulse Ox 94 Oxygen Delivery Method Nasal Cannula Oxygen Flow Rate (L/min) 3 10/23/24 23:35 10/24/24 02:00 10/24/24 04:20 Temperature 97.9 F Temperature Source Oral Pulse Rate 107 H 116 H Pulse Strength Respiratory Rate 24 H Respiratory Effort Respiratory Depth Respiratory Pattern Blood Pressure 122/64 H Blood Pressure Mean 83 Blood Pressure Source Monitor Blood Pressure Position Semi-Fowlers Blood Pressure Location Left Arm Pulse Ox 94 93 Oxygen Delivery Method Nasal Cannula Nasal Cannula Oxygen Flow Rate (L/min) 3 3 10/24/24 04:30 10/24/24 04:35 10/24/24 04:35 Temperature Temperature Source Pulse Rate 106 H Pulse Strength Respiratory Rate 26 H Respiratory Effort Normal Respiratory Depth Normal Respiratory Pattern Normal Tachypnea Blood Pressure Blood Pressure Mean Blood Pressure Source Blood Pressure Position Blood Pressure Location Pulse Ox 94 Oxygen Delivery Method Nasal Cannula Nasal Cannula Oxygen Flow Rate (L/min) 3 3 10/24/24 04:59 10/24/24 06:03 10/24/24 07:07 Temperature 98.2 F 98.3 F Temperature Source Oral Oral Pulse Rate 116 H 109 H 120 H Pulse Strength Respiratory Rate 22 H 20 H 26 H Respiratory Effort Respiratory Depth Respiratory Pattern Tachypnea Blood Pressure 129/72 H 132/68 H Blood Pressure Mean 91 89 Blood Pressure Source Monitor Monitor Blood Pressure Position Sitting Semi-Fowlers Blood Pressure Location Left Arm Left Arm Pulse Ox 95 95 Oxygen Delivery Method Nasal Cannula Nasal Cannula Oxygen Flow Rate (L/min) 3 3 10/24/24 07:07 10/24/24 08:57 10/24/24 08:57 Temperature 98.1 F Temperature Source Oral Pulse Rate 125 H Pulse Strength Normal (2+) Respiratory Rate 20 H Respiratory Effort Respiratory Depth Respiratory Pattern Blood Pressure 129/77 H Blood Pressure Mean 94 Blood Pressure Source Blood Pressure Position Blood Pressure Location Pulse Ox 92 95 Oxygen Delivery Method Nasal Cannula Nasal Cannula Oxygen Flow Rate (L/min) 3 10/24/24 08:57 10/24/24 08:57 10/24/24 09:05 Temperature 98.1 F Temperature Source Oral Pulse Rate 125 H 129 H Pulse Strength Respiratory Rate 20 H Respiratory Effort Normal Respiratory Depth Normal Respiratory Pattern Normal Blood Pressure 129/77 H Blood Pressure Mean 94 Blood Pressure Source Monitor Blood Pressure Position Sitting Blood Pressure Location Left Arm Pulse Ox 95 Oxygen Delivery Method Nasal Cannula Nasal Cannula Oxygen Flow Rate (L/min) 3 3 10/24/24 10:44 10/24/24 10:45 10/24/24 12:00 Temperature 98.3 F 97.7 F L Temperature Source Oral Oral Pulse Rate 115 H 125 H Pulse Strength Respiratory Rate 28 H 24 H Respiratory Effort Respiratory Depth Respiratory Pattern Blood Pressure 126/59 H 96/48 L Blood Pressure Mean 81 64 Blood Pressure Source Monitor Blood Pressure Position Semi-Fowlers Blood Pressure Location Right Arm Pulse Ox 91 90 95 Oxygen Delivery Method Nasal Cannula Nasal Cannula Nasal Cannula Oxygen Flow Rate (L/min) 4 3 3.5 10/24/24 12:00 10/24/24 13:22 10/24/24 13:27 Temperature 97.7 F L 98.8 F Temperature Source Oral Oral Pulse Rate 125 H 123 H 121 H Pulse Strength Respiratory Rate 24 H 24 H Respiratory Effort Respiratory Depth Respiratory Pattern Blood Pressure 96/48 L 141/83 H Blood Pressure Mean 64 102 Blood Pressure Source Monitor Monitor Blood Pressure Position Semi-Fowlers Semi-Fowlers Blood Pressure Location Left Arm Left Arm Pulse Ox 95 94 Oxygen Delivery Method Nasal Cannula Nasal Cannula Oxygen Flow Rate (L/min) 3.5 3.5 10/24/24 13:34 10/24/24 13:58 10/24/24 15:14 Temperature 98.4 F 98.4 F Temperature Source Oral Oral Pulse Rate 123 H 116 H Pulse Strength Respiratory Rate 24 H 24 H Respiratory Effort Normal Respiratory Depth Normal Respiratory Pattern Normal Blood Pressure 135/82 H 152/87 H Blood Pressure Mean 99 108 Blood Pressure Source Monitor Monitor Blood Pressure Position Semi-Fowlers Semi-Fowlers Blood Pressure Location Left Arm Left Arm Pulse Ox 93 92 Oxygen Delivery Method Nasal Cannula Nasal Cannula Nasal Cannula Oxygen Flow Rate (L/min) 3.5 3.5 4 10/24/24 16:03 10/24/24 16:03 10/24/24 16:16 Temperature 98 F 98 F Temperature Source Oral Oral Pulse Rate 110 H 110 H 96 Pulse Strength Respiratory Rate 24 H 24 H Respiratory Effort Respiratory Depth Respiratory Pattern Blood Pressure 133/77 H 133/77 H Blood Pressure Mean 95 95 Blood Pressure Source Monitor Blood Pressure Position Sitting Blood Pressure Location Left Arm Pulse Ox 92 92 Oxygen Delivery Method Nasal Cannula Nasal Cannula Oxygen Flow Rate (L/min) 4 4 10/24/24 17:11 Temperature 98.4 F Temperature Source Oral Pulse Rate 119 H Pulse Strength Respiratory Rate 24 H Respiratory Effort Respiratory Depth Respiratory Pattern Blood Pressure 151/82 H Blood Pressure Mean 105 Blood Pressure Source Monitor Blood Pressure Position Semi-Fowlers Blood Pressure Location Left Arm Pulse Ox 94 Oxygen Delivery Method Nasal Cannula Oxygen Flow Rate (L/min) 4 Weight Weight: 251 lb Body Mass Index (BMI) 44.4 ROS Eyes Eyes: Denies blurry vision Cardiovascular Cardiovascular: Reports chest pain and dyspnea Respiratory/Chest Respiratory/Chest: Reports chest congestion, cough, dyspnea, shortness of breath at rest, shortness of breath with exertion, tachypnea and wheezing Gastrointestinal Gastrointestinal: Reports none and other; Denies diarrhea or vomiting Genitourinary Genitourinary: Denies dysuria Musculoskeletal Musculoskeletal: Reports back pain Integumentary Integumentary: Reports none; Denies rash Neurologic Neurologic: Denies other visual disturbances Psychiatric Psychiatric: Reports none Physical Exam Const General Appearance: in distress and diaphoretic Orientation / Consciousness: awake HEENT normocephalic Eyes General Eye: normal appearance of both eyes Neck full ROM Resp Resp Narrative: Currently on O2 via nasal cannula Effort and Inspection: tachypneic Cardio Rate: tachycardic GI soft to palpation, non-tender and non-distended Inspection: and other Back/Spine normal ROM Extremity full ROM, normal capillary refill and no calf tenderness Skin no rashes or lesions noted Neuro oriented x3 and CN's II-XII intact bilaterally Lab / Micro Data 10/24/24 04:14 10/24/24 04:14 Labs: Laboratory Results - last 24 hr 10/24/24 04:14: WBC 16.8 H, RBC 3.45 L, Hgb 10.5 L, Hct 31.0 L, MCV 89.9, MCH 30.4, MCHC 33.9, RDW Std Deviation 43.1, RDW Coeff of Matthias 13.1, Plt Count 302, MPV 9.9, Immature Gran % (Auto) 0.300, Neut % (Auto) 91.4 H, Lymph % (Auto) 6.8 L, [place] % (Auto) 1.1, Eos % (Auto) 0.1, Baso % (Auto) 0.3, Absolute Neuts (auto) 15.3 H, Absolute Lymphs (auto) 1.14, Nucleated RBC % 0, Differential Comment SCANNED, PT 13.1, INR 1.0, Sodium 133 L, Potassium 3.0 L, Chloride 104, Carbon Dioxide 22.0, Anion Gap 8, BUN 5 L, Creatinine 0.35 L, Estim Creat Clear Calc 262.25, Est GFR (MDRD) Af Amer 268, Est GFR (MDRD) Non-Af 221, BUN/Creatinine Ratio 14.3, Glucose 129 H, Calcium 8.7, Phosphorus 2.6, Magnesium 1.4 L, Total Bilirubin 0.60, Direct Bilirubin 0.21, AST 33, ALT 27, Alkaline Phosphatase 87, Total Protein 6.4, Albumin 2.2 L, Globulin 4.2, Procalcitonin 1.59 H, TSH 0.613 10/24/24 09:32: Urine Opiates Screen NEGATIVE, Urine Methadone Screen NEGATIVE, Ur Barbiturates Screen NEGATIVE, Ur Phencyclidine Scrn NEGATIVE, Ur Amphetamines Screen POSITIVE H, MDMA (Ecstasy) Screen NEGATIVE, U Benzodiazepines Scrn NEGATIVE, Urine Cocaine Screen NEGATIVE, U Cannabinoids Screen POSITIVE H, Ur Drug Screen Comment Micro: Microbiology 10/24/24 15:17 Nasal Secretion MRSA (PCR) - Final 10/24/24 07:15 Mucosa - Nasopharyngeal Respiratory Panel (PCR) - Final Influenza A (Subtype H1) 10/24/24 09:32 Urine, Clean Catch Legionella Antigen - Final 10/24/24 09:32 Urine, Clean Catch Streptococcus pneumoniae Antigen (M - Final 10/23/24 16:40 Mucosa - Nasopharyngeal Coronavirus COVID-19 PCR - Final 10/23/24 11:56 Mucosa - Nose SARS-CoV-2, Influenza & RSV (PCR) - Final Influenzae A ABG Data ABG results: ABG 10/24/24 17:46 Specimen Type ART Sample Site L Radial pH 7.47 H Bicarbonate Actual 23.4 Total CO2 24 Base Excess 0 O2 Saturation 87 L O2 % 4.0 ABG pCO2 32.2 L ABG pO2 48 L Rajiv Test Positive O2 Delivery Device Cannula Vent Mode Not entered Rhythm Strip Rhythm Strip: Sinus Tach Rate: 126 Ectopy: None
--- NOTE | 2024-10-24 17:58 | PCM.HOSP.N ---
Hospitalist Note Patient with continued increased oxygen requirements, tachycardia despite IV fluids and broadening of antibiotic therapy with some concern for concurrent possible polysubstance withdrawal. Patient evaluated by SMALL BUSINESS DIRECTOR service and they are also concerned with her status and recommending transition to a higher level of care where maternal- medicine is more broadly available specifically noting possibly Fritz Ellison or Janine. Will in the interim transition patient to the ICU, transition to Airvo based on ABG obtained now, notify shoe cutter plan and initiate transfer with Fritz Ellison.
--- NOTE | 2024-10-24 18:24 | DS.PCM_ITS ---
Providers Date of Admission: 10/23/24 Date of Discharge: 10/24/24 Primary Care Physician: Veena Primary Care Phys Consultations 10/24/24 13:33 Consult: MEDICAL COST CONSULTANT Routine Consulting Provider: Jessica Jean-Baptiste Reason for Consult: 25 weeks gestation, admit with PNA/influenza/poss overlapping EMERGENT Consult: No MD Notified: Yes Date Notified: 10/24/24 Time Notified: 13:34 Method of Notification: Verbal Reason For Visit: SHORTNESS OF BREATH Diagnosis Discharge Diagnosis (1) 26 weeks gestation of : Status: Acute Code(s): Z3A.26 - 26 weeks gestation of (2) Tachycardia: Status: Acute Code(s): R00.0 - Tachycardia, unspecified (3) Left lower lobe pneumonia: Status: Acute Code(s): J18.9 - Pneumonia, unspecified organism (4) Influenza A: Status: Acute Code(s): J10.1 - Influenza due to other identified influenza virus with other respiratory manifestations (5) Multigravida of advanced maternal age in second trimester: Status: Acute Code(s): O09.522 - Supervision of elderly multigravida, second trimester (6) History of section complicating : Status: Acute Code(s): O34.219 - Maternal care for unspecified type scar from previous delivery (7) Hepatitis: Status: Acute Code(s): K75.9 - Inflammatory liver disease, unspecified (8) Smoker: Status: Acute Code(s): F17.200 - Nicotine dependence, unspecified, uncomplicated Plan DISCHARGE DIAGNOSES: #1. Acute Hypoxia secondary to L mid and LLL Pneumonia secondary to Acute Influenza A Viral Syndrome and concern for superimposed CAP #2. Hyponatremia, suspected hypovolemic component #3. Hypokalemia, Hypomagnesemia #4. Incidental possible lung nodule opacity #5. , 25 weeks #6. Normocytic anemia #7. Former polysubstance abuse with history of hepatitis with UDS w/ + cannabis/methamphetamine with concern for possible component of substance withdrawal #8. Tobacco Abuse #9. Anxiety and depression #10. Morbid Obesity Medications at Discharge Home Medications vitamin no.49-iron fum-folic acid 6.75 mg iron-200 mcg tablet (Mini ) 1 tab PO DAILY 10/23/24 Hospital Course Operations None Procedures EKG and - (Midline.) Summary of Care Provided Minutes Spent on Discharge: 35 Hospital Course: The patient is a 39 y/o F w/ PMHx: Morbid obesity, Anxiety and Depression, Hx Hepatitis, Former Polysubstance abuse, Tobacco use, currently 25 weeks who presented to [facility] ED on 10/23/2024 with history of developing URI type symptoms approximately 1 week prior with worsening cough and dyspnea with onset of left-sided pleuritic discomfort with outpatient ED evaluation at [facility] 2 days prior with chest x-ray with bronchitis diagnosis at that time with encourage continued albuterol inhaler which she has been using however she did run out of her nebulizing solution with increasing pain and cough with no fevers but given ongoing symptoms prompted eventual ED evaluation to be cautious. In the ED workup included T97, heart rate initially 154, BP 136/100, respiratory rate 26, 94% on room air with repeat vital signs in the ED T98.4, heart 134, BP 120/76, respiratory rate 19, 92% on room air, CBC with WBC 11.8, hemoglobin 0.8, MCV 89.5, platelet 350 with left shift, CMP with sodium 135, potassium 3.2, BUN/creatinine 6/0.37, glucose 116, initial lactic acid 2.0 with repeat 1.9, hepatic profile with T. bili 0.50, D bili 0.18, AST/ALT 53/34, alk phos 116, troponin 8, rapid SARS COVID/influenza/RSV PCR with positive influenza A, chest x-ray with patchy opacities within the left mid and lower lung with appearance of pneumonia, 1.6 cm nodular opacity within the left midlung possibly secondary to confluence of shadows with recommended follow-up chest radiograph in 6 to [address] for further characterization. In the ED patient administered 2 L normal saline, IV Rocephin and IV azithromycin, DuoNeb therapy, Solu-Medrol 100 mg IV x 1, morphine 6 mg IV x 1, Zofran 4 mg IV x 1 as well as Tamiflu 75 mg p.o. x 1. Patient does report that activity has been similar and unchanged. She reports planned delivery at [facility] with [facility] MEDICAL COST CONSULTANT. ED discussed case with pool nurse CC prior to request for Hospitalist service admission. The patient was admitted to medical surgical floor, maintained on oxygen, maintained on ATC budesonide therapy, PRN albuterol, dosed in the ED with x 1 IV Solu-Medrol, given timeline of symptoms will deferred further Tamiflu usage but dose x 1 in the ED given. Full respiratory viral panel with only noted positive influenza A. Urine antigens negative. Procalcitonin elevated. Initially maintained on IV Rocephin and azithromycin. UDS was obtained given substance abuse history and was positive for methamphetamines as well as cannabis. Patient status was not improving and oxygenation requirements were increasing thus given this and her substance abuse history with agents in her system on UDS decision to broaden her to IV vancomycin and IV Zosyn. Admission CMP 135, chloride 105, given presentation aggressively hydrated in the ED, 10/24/24 sodium 133. Admission K+ 3.2, magnesium level 1.4 with supplementation being administered, 10/24/24 potassium 3.0 with additional supplementation administered. pool nurse was contacted and discussed patient's status with worsening respiratory component. MEDICAL COST CONSULTANT evaluated patient 10/24/2024 and agreed that patient required an appropriate higher level of care for maternal- high risk evaluation. ABG was obtained and patient was noted to be hypoxic with a significantly reduced pO2 prompting placement on Airvo. Patient following Airvo transition was able to maintain a saturation above 95% but required 70% FiO2. Patient was transferred to the ICU and per discussion with pool nurse transfer to [facility] was initiated. Discussed case initially with on-call OB and given the severity of the illness with usage of Airvo they recommended that she be admitted to MICU with a consult to their service. Discussed case with on-call MICU physician Dr. Payan who accepted the patient. Weight / BMI Weight Weight: 251 lb Body Mass Index (BMI) 44.4 ABG / Lab / Microbiology Data 10/24/24 04:14 10/24/24 04:14 Laboratory: Laboratory Results - last 24 hr 10/24/24 04:14: WBC 16.8 H, RBC 3.45 L, Hgb 10.5 L, Hct 31.0 L, MCV 89.9, MCH 30.4, MCHC 33.9, RDW Std Deviation 43.1, RDW Coeff of Matthias 13.1, Plt Count 302, MPV 9.9, Immature Gran % (Auto) 0.300, Neut % (Auto) 91.4 H, Lymph % (Auto) 6.8 L, Gordon % (Auto) 1.1, Eos % (Auto) 0.1, Baso % (Auto) 0.3, Absolute Neuts (auto) 15.3 H, Absolute Lymphs (auto) 1.14, Nucleated RBC % 0, Differential Comment SCANNED, PT 13.1, INR 1.0, Sodium 133 L, Potassium 3.0 L, Chloride 104, Carbon Dioxide 22.0, Anion Gap 8, BUN 5 L, Creatinine 0.35 L, Estim Creat Clear Calc 262.25, Est GFR (MDRD) Af Amer 268, Est GFR (MDRD) Non-Af 221, BUN/Creatinine Ratio 14.3, Glucose 129 H, Calcium 8.7, Phosphorus 2.6, Magnesium 1.4 L, Total Bilirubin 0.60, Direct Bilirubin 0.21, AST 33, ALT 27, Alkaline Phosphatase 87, Total Protein 6.4, Albumin 2.2 L, Globulin 4.2, Procalcitonin 1.59 H, TSH 0.613 10/24/24 09:32: Urine Opiates Screen NEGATIVE, Urine Methadone Screen NEGATIVE, Ur Barbiturates Screen NEGATIVE, Ur Phencyclidine Scrn NEGATIVE, Ur Amphetamines Screen POSITIVE H, MDMA (Ecstasy) Screen NEGATIVE, U Benzodiazepines Scrn NEGATIVE, Urine Cocaine Screen NEGATIVE, U Cannabinoids Screen POSITIVE H, Ur Drug Screen Comment Microbiology: Microbiology 10/24/24 15:17 Nasal Secretion MRSA (PCR) - Final 10/24/24 07:15 Mucosa - Nasopharyngeal Respiratory Panel (PCR) - Final Influenza A (Subtype H1) 10/24/24 09:32 Urine, Clean Catch Legionella Antigen - Final 10/24/24 09:32 Urine, Clean Catch Streptococcus pneumoniae Antigen (M - Final 10/23/24 16:40 Mucosa - Nasopharyngeal Coronavirus COVID-19 PCR - Final 10/23/24 11:56 Mucosa - Nose SARS-CoV-2, Influenza & RSV (PCR) - Final Influenzae A ABG: ABG 10/24/24 17:46 Specimen Type ART Sample Site L Radial pH 7.47 H Bicarbonate Actual 23.4 Total CO2 24 Base Excess 0 O2 Saturation 87 L O2 % 4.0 ABG pCO2 32.2 L ABG pO2 48 L Rajiv Test Positive O2 Delivery Device Cannula Vent Mode Not entered D/C Instructions DC O2, CPAP, BIPAP Needs PSN CPAP & BiPAP: BiPAP & CPAP Settings per PSN Mode AIRVO 10/24/24 18:08 Bipap Delivery Device Nasal Mask 10/24/24 18:08 BiPAP Expiratory Pressure 50 10/24/24 18:08 Fraction of Inspired Oxygen ( 70 10/24/24 18:08 FIO2) Home O2 Discharge instructions: No Meaningful Use Info Meaningful Use Meaningful Use Diagnoses (Choose all that apply): None applicable Ischemic Stroke Statin Dosing Therapy Reference: STATIN DOSE THERAPY REFERENCE: * Patients > 75 years receive moderate or high dose statin therapy. * Patients 75 years or YOUNGER should receive HIGH intensity statin dose unless contraindicated. You will be required to document reason for non-treatment if statin daily dose does not meet guidelines. HIGH DOSE STATIN THERAPY DAILY Atorvastatin > than or = to 40 mg Rosuvastatin > than or = to 20 mg Amlodipine + Atorvastatin > than or = to 2.5/40 mg Ezetimibe + Simvastatin 10/80 mg Simvastatin 80mg Discharge Plan Admission Admit Date/Time: 10/23/24 14:06 Attending Provider: Fanta Clifton Primary Care Provider: Care Physician,Veena Primary Consulting Providers: Chirag Diaz; Jessica Jean-Baptiste Discharge Orders/Prescriptions Prescriptions: No Action Mini 6.75 mg iron- 200 mcg tablet 1 tab PO DAILY Referrals / Follow Up: Care Physician,No Primary [Primary Care Provider] - Charges/Coding Visit Charges Inpatient E&M: 01379 Disch Hosp >30min
--- NOTE | 2024-10-24 18:41 | CON.PCM_ITS ---
Assessment & Plan Assessment/Plan (1) 26 weeks gestation of : PLAN: Patient did not have labs drawn during . Had one visit in the office. Will need panel drawn. FHT 160's. Discussed with hospitalist recommend tertiary care center with MFM available given viable gestation and acuity of patient's status. Patient being transferred to [facility] and hospitalist discussed with MFM. (2) Influenza A: PLAN: Management per medicine (3) Left lower lobe pneumonia: PLAN: Management per medicine (4) History of drug use: (5) History of section complicating : PLAN: History of 3 prior sections (6) Multigravida of advanced maternal age in second trimester: (7) Hepatitis: (8) Smoker: (9) Limited care: HPI Consult Data Date of Consult: 10/24/24 HPI Narrative Reason for Consultation: HPI Narrative: BASSAM OSBORN, is a 39 F who presented to the ER yesterday and was admitted to medicine service for influenza A with CAP, hypoxia requiring oxygen, and possible withdrawal with history of polysubstance use and tox screen on admission positive for amphetamine and THC. She reports feeling FM. No bleeding. She is tearful today with concerns regarding baby. History of a D&C for miscarriage, and 3 prior uncomplicated term sections. 2 children were adopted out. She has only been seen in this for 1 vist. EDC is set based on 19 week ultrasound. Unremarkable anatomy ultrasound. History of meth and heroin use. History of hepatitis C. Has not had labs completed. [facility] Medical History (Updated 10/24/24 @ 18:[address] Jessica Jean-Baptiste, DO) Anxiety Depression Hepatitis Smoker Drug abuse in remission Home Medications ?Medication ?Instructions ?Recorded ?Last Taken ?Type vitamin no.49-iron 1 tab PO DAILY 10/23/24 Unknown History fum-folic acid 6.75 mg iron-200 mcg tablet (Mini ) Allergy/AdvReac Type Severity Reaction Status Date / Time codeine Allergy Itching Verified 10/23/24 11:16 tramadol HCl (From Ultram) Allergy Rash Verified 10/23/24 11:16 naproxen AdvReac Upset Verified 10/23/24 11:16 Stomach Surgical History (Updated 10/24/24 @ 18:05 by Jenifer Schuler CNM) History of cholecystectomy History of appendectomy Social History (Updated 10/23/24 @ 12:03 by Ekta Cotter) household members: significant other and children Smoking Status: Current every day smoker tobacco type: cigarettes Physical Exam Const alert and no apparent distress Constitutional Narrative: Tearful General Appearance: comfortable GI GI Narrative: Gravid Lab / Micro Data 10/24/24 04:14 10/24/24 04:14 Labs: Laboratory Results - last 24 hr 10/24/24 04:14: WBC 16.8 H, RBC 3.45 L, Hgb 10.5 L, Hct 31.0 L, MCV 89.9, MCH 30.4, MCHC 33.9, RDW Std Deviation 43.1, RDW Coeff of Matthias 13.1, Plt Count 302, MPV 9.9, Immature Gran % (Auto) 0.300, Neut % (Auto) 91.4 H, Lymph % (Auto) 6.8 L, [place] % (Auto) 1.1, Eos % (Auto) 0.1, Baso % (Auto) 0.3, Absolute Neuts (auto) 15.3 H, Absolute Lymphs (auto) 1.14, Nucleated RBC % 0, Differential Comment SCANNED, PT 13.1, INR 1.0, Sodium 133 L, Potassium 3.0 L, Chloride 104, Carbon Dioxide 22.0, Anion Gap 8, BUN 5 L, Creatinine 0.35 L, Estim Creat Clear Calc 262.25, Est GFR (MDRD) Af Amer 268, Est GFR (MDRD) Non-Af 221, BUN/Creatinine Ratio 14.3, Glucose 129 H, Calcium 8.7, Phosphorus 2.6, Magnesium 1.4 L, Total Bilirubin 0.60, Direct Bilirubin 0.21, AST 33, ALT 27, Alkaline Phosphatase 87, Total Protein 6.4, Albumin 2.2 L, Globulin 4.2, Procalcitonin 1.59 H, TSH 0.613 10/24/24 09:32: Urine Opiates Screen NEGATIVE, Urine Methadone Screen NEGATIVE, Ur Barbiturates Screen NEGATIVE, Ur Phencyclidine Scrn NEGATIVE, Ur Amphetamines Screen POSITIVE H, MDMA (Ecstasy) Screen NEGATIVE, U Benzodiazepines Scrn NEGATIVE, Urine Cocaine Screen NEGATIVE, U Cannabinoids Screen POSITIVE H, Ur Drug Screen Comment Micro: Microbiology 10/24/24 15:17 Nasal Secretion MRSA (PCR) - Final 10/24/24 07:15 Mucosa - Nasopharyngeal Respiratory Panel (PCR) - Final Influenza A (Subtype H1) 10/24/24 09:32 Urine, Clean Catch Legionella Antigen - Final 10/24/24 09:32 Urine, Clean Catch Streptococcus pneumoniae Antigen (M - Final 10/23/24 16:40 Mucosa - Nasopharyngeal Coronavirus COVID-19 PCR - Final ABG Data ABG results: ABG 10/24/24 17:46 Specimen Type ART Sample Site L Radial pH 7.47 H Bicarbonate Actual 23.4 Total CO2 24 Base Excess 0 O2 Saturation 87 L O2 % 4.0 ABG pCO2 32.2 L ABG pO2 48 L Rajiv Test Positive O2 Delivery Device Cannula Vent Mode Not entered Rhythm Strip Rhythm Strip: Sinus Tach Rate: 126 Ectopy: None
--- NOTE | 2024-10-24 18:41 | NURSING ---
called report to icu. pt transferred to icu
[2024-10-24] MEDS: Piperacil/Tazobactam 3.375 GM in 0.9% Normal Saline (50mL MB+) 50 ML IV ×2 (18:52→23:20)
[2024-10-24] MEDS: Budesonide Respules 0.5 MG/2 ML AMPUL.NEB. INHALATION (19:09)
--- NOTE | 2024-10-24 20:20 | CASEMGMT ---
Social work Received phone call from [employer] psychiatric secretary while present in the ED. This SW was asked if patient's insurance would be accepted at [facility] due to patient needing to be transferred to a higher level of care. Verified that [facility] accepted [facility] and passed this information along to [employer] psychiatric secretary. No other needs identified at this time. Shannon Christianson, RECRUITING TEAM LEAD, PLATEN DRIER OPERATOR
--- NOTE | 2024-10-24 23:45 | NURSING ---
2340- still waiting for bed @ [facility] for patient. Attempted to contact compensation advisor OBGYN to clarify order for check as none were placed by Dr. Jean-Baptiste. Was informed by system operator that the only person compensation advisor was Toyin Zhang and was transferred to her line. VM left on her number w/ call back number. This RN contact [facility] at this point in an attempt to see if Toyin Zhang was down in the unit. Was informed by OB RN Swetha that Toyin Zhang would not see this patient as this patient was seen by [facility]. Was informed both dr. Jean-Baptiste and Feng Schuler were compensation advisor and Jenifer Schuler was in the hospital. Swetha RN from OB stated she would have someone come up to do heart one checks once they have some available because they were in the middle of a delivery that Jenifer Schuler was also in on. Dr. Jean-Baptiste contacted at [phone]. Updated Dr. Jean-Baptiste that patient was still here and we were still waiting on a bed, questioned whether or not their should be a physical order in the chart to have staff from OB rounding on this patient as there was not one currently. Dr. Jean-Baptiste stated that this RN could place an order in the chart for Qshift dopplers, Dr. Jean-Baptiste stated that staff were aware of this patient, informed her that I have not seen anyone from [facility] this shift and that when I talked to OB staff hey thought the patient had been transferred. This RN questioned how long we should be waiting for a bed at [facility] before exploring the other hospitals that have [facility]. Dr. Jean-Baptiste stated that she does not want the patient to sit here for multiple days as she is high risk at her gestation and that it is medically at the hospitalist's discretion. 0000 staff from OB to floor to do FHT's, FHR 155. [phone] [facility] transport team contacted this RN w/ room number/ floor and ETA of 1 hr
[2024-10-25] VITALS: BP 133/84; PULSE 115; RESP 20; TEMP 36.8; O2SAT 94
--- NOTE | 2024-10-25 00:18 | NURSING ---
This RN obtained heart rate via doppler US at 154bpm at 0010. Maternal heart rate was 91bpm simultaneously. Regular heart rate noted. heart rate reported to primary care RN.
[2024-10-25] MEDS: Vancomycin HCl 1,500 MG in 0.9% Normal Saline (500mL Bag) 500 ML 250 MG IV (00:34)
--- NOTE | 2024-10-25 00:54 | NURSING ---
0050- called [facility] and gave report to John GAMA
--- NOTE | 2024-10-25 00:57 | NURSING ---
Informed by primary RN that pt's PIV was not working and she only had a single-lumen midline to run her vancomycin and zosyn. Attempted PIV placement x2, unsuccessful both times. During second attempt, pt began becoming very upset, yelling and screaming profanities and insulting staff. Attempted to calm pt, unsuccessful. Pt continuing to yell and said don't come back in my room again. This RN left room, pt resting in bed now.
[2024-10-25 01:00] VITALS: BP 129/75; PULSE 105; RESP 27; TEMP 36.8; O2SAT 96
--- NOTE | 2024-10-25 01:41 | NURSING ---
0120- [facility] transport on unit for pt. 0140 pt left unit w/ belongings and transport w/o incident. Clair notified
== END 2024-10-25 01:40 | disposition short-term general hospital (02) | DRG 566 ==
LOC: ED 11:35 → MS3 14:43 → ICU 10-24 18:31
PROVIDERS: Admitting Provider Internal Medicine; Emergency Provider Emergency Medicine; Visit Provider Family Medicine
DX: O99.512 Diseases of the respiratory system complicating pregnancy, second trimester (principal); J10.08 Influenza due to other identified influenza virus with other specified pneumonia; J15.9 Unspecified bacterial pneumonia; E87.1 Hypo-osmolality and hyponatremia; O34.219 Maternal care for unspecified type scar from previous cesarean delivery; E66.01 Morbid (severe) obesity due to excess calories; K75.9 Inflammatory liver disease, unspecified; F32.A Depression, unspecified; O99.012 Anemia complicating pregnancy, second trimester; O99.322 Drug use complicating pregnancy, second trimester; F15.13 Other stimulant abuse with withdrawal; D64.9 Anemia, unspecified; F17.210 Nicotine dependence, cigarettes, uncomplicated; F41.9 Anxiety disorder, unspecified; E83.42 Hypomagnesemia; E87.6 Hypokalemia; J10.01 Influenza due to other identified influenza virus with the same other identified influenza virus pneumonia; R09.02 Hypoxemia; F12.13 Cannabis abuse with withdrawal; O26.612 Liver and biliary tract disorders in pregnancy, second trimester; O99.332 Smoking (tobacco) complicating pregnancy, second trimester; O09.512 Supervision of elderly primigravida, second trimester; O99.342 Other mental disorders complicating pregnancy, second trimester; O09.32 Supervision of pregnancy with insufficient antenatal care, second trimester; Z3A.26 26 weeks gestation of pregnancy; O99.282 Endocrine, nutritional and metabolic diseases complicating pregnancy, second trimester; O99.212 Obesity complicating pregnancy, second trimester; O09.522 Supervision of elderly multigravida, second trimester
CPT/HCPCS: 36415; 36600; 71046; 80048; 80076; 80307; 82803; 83605; 83735; 84100; 84145; 84443; 84484; 85025; 85610; 87070; 87205; 87449; 87631; 87633; 87635; 87641; 93005; 94002; 94640; 94660; 99284; A4216; J0696; J2405

== ENCOUNTER 2025-01-28 13:43 | Inpatient (IN) | payer MEDICAID, SELFPAY ==
[2025-01-28] VITALS (14 sets, daily range): BP systolic 62–143; BP diastolic 46–94; PULSE 80–104; RESP 12–19; TEMP 36.3–36.8; O2SAT 96–100; BMI 41.7
[2025-01-28] MEDS: Lactated Ringers 1,000 ML 999 ML IV ×2 (14:55→19:37)
[2025-01-28 15:34] LABS: Absolute Lymphocyte Count 2.77 X10^3/uL (0.83-4.51); Absolute Neutrophil Count 10.5 X10^3/uL (2.0-7.7); Basophil# 0.05 X10^3/uL; Basophil% 0.4 % (0-1); Eosinophil# 0.08 X10^3/uL; Eosinophils% 0.6 % (0-5); Hematocrit 36.7 % (37-47); Hemoglobin 12.6 g/dL (12.0-15.0); Lymphocyte # 2.77 X10^3/ul (0.83-4.51); Lymphocyte % 19.5 % (19-41); Mean Corp Hgb Conc 34.3 g/dL (32-36); Mean Corpuscular Hgb 30.6 pg (27.0-32.0); Mean Corpuscular Volume 89.1 fL (81-99); Mean Platelet Vol. 11.1 fl (6.2-12.0); Monocyte# 0.76 X10^3/uL; Monocyte% 5.3 % (0-10); NRBC Flagged by Analyzer 0 % (0-5); Neutrophil % 73.7 % (47-70); Platelet Count 326 K/mm3 (150-450); RBC Distribution Width CV 14.4 % (11.6-14.6); RBC Distribution Width SD 47.1 fl (35.1-43.9); Red Blood Count 4.12 M/mm3 (4.2-5.4); White Blood Count 14.2 K/mm3 (4.4-11.0)
[2025-01-28] MEDS: Acetaminophen 500 MG Tablet 1000 MG PO ×2 (15:46→21:55)
[2025-01-28 15:57] LABS: AST(SGOT) 14 U/L (<=31); Alanine Aminotransfer ALT/SGPT 12 U/L (<=34); Albumin, Serum 3.4 g/dL (3.5-5.0); Alkaline Phosphatase 132 U/L (35-104); Anion Gap 13 (5-15); BUN 9 mg/dL (4-19); BUN/Creat Ratio 21.1 RATIO (10-20); Calcium,Total 9.2 mg/dL (7.6-11.0); Carbon Dioxide 18.7 mmol/L (21.0-32.0); Chloride 106 mmol/L (98-108); Creatinine, Serum 0.41 mg/dL (0.70-1.20); EST Glomerular Filtration Rate 129 (>60); Globulin 3.4 g/dL (2.2-4.2); Glucose 108 mg/dL (70-99); Potassium 3.8 mmol/L (3.3-5.1); Protein, Total 6.8 g/dL (5.9-8.4); Sodium Level 137 mmol/L (133-145); Syphilis Antibodies Nonreactive (Nonreactive); Total Bilirubin 0.43 mg/dL (0.00-1.30)
[2025-01-28] MEDS: Lactated Ringers 1,000 ML 150 ML IV (15:59)
[2025-01-28] MEDS: Sodium Citrate/Citric Acid 30 ML UDC PO (16:25)
[2025-01-28 16:26] LABS: Barbiturate Urine NEGATIVE (< 200 ng/mL); Benzodiazepine Urine NEGATIVE (< 200 ng/mL); Cocaine Urine NEGATIVE (< 300 ng/mL); Methadone Urine NEGATIVE (< 300 ng/mL); Opiates Urine NEGATIVE (< 300 ng/mL); PCP Urine NEGATIVE (< 25 ng/mL); THC Urine PRESUMPTIVE POSITIVE (< 50 ng/mL)
[2025-01-28 16:47] LABS: Amphetamine Urine VISTA NEGATIVE (<1000 ng/mL)
--- NOTE | 2025-01-28 16:51 | PCM.HP.OB ---
HPI - General General Date of Admission: 01/28/25 Date of Service: 01/28/25 Chief Complaint: contractions HPI Narrative 39-year-old 5 para 3-0-1-3 presents at 39-6/7 weeks with a EDC of 01/29/2025 complaining contractions. is complicated to date by poor care. She has not had much care in the third trimester she states she has not had transportation. She did have a prolonged hospitalization in the second trimester for influenza complicated by pneumonia. She was treated at [facility] for that. She also had ARDS and was intubated. Patient notes she had elevated blood pressures during the admission was sent home on blood pressure medication which she has not been taking because it made her feel tired and lethargic. She notes she also had C. difficile during the hospitalization and acute kidney injury during that hospitalization. Past medical history is significant for morbid obesity with BMI of 45, chronic hepatitis C infection for many years, she denies history of diagnosed hypertension before the . She also has a chronic history of depression and PTSD, hidradenitis Social history patient notes she has had IV drug use of methamphetamines and heroin in the past. She states she has not used these for many years. She did inject IV drugs in the past. She smokes tobacco about half pack daily and marijuana daily during the . She denies any other substance use during the . Medications patient just reports vitamins. Past surgical history significant for 3 C-sections, multiple hidradenitis surgeries in her axilla and groin areas. She is also had an appendectomy and a cholecystectomy and an excisional procedure of the cervix for abnormal Pap smear Maternal Data Information Final RA: 01/29/25 Gestational age: 39 6/7 [facility] Medical History (Updated 01/28/25 @ 16:[address] Supriya Faith MD) PID (pelvic inflammatory disease) C. difficile diarrhea MRSA (methicillin resistant staph aureus) culture positive Anxiety Depression Hepatitis Smoker Drug abuse in remission Home Medications ?Medication ?Instructions ?Recorded ?Last Taken ?Type vitamin no.49-iron 1 tab PO DAILY 10/23/24 01/27/25 History fum-folic acid 6.75 mg iron-200 mcg tablet (Mini ) albuterol sulfate 90 mcg/actuation 2 puff inhalation Q6H PRN PRN 01/28/25 Unknown History aerosol inhaler wheezing Allergy/AdvReac Type Severity Reaction Status Date / Time codeine Allergy Itching Verified 01/28/25 14:29 tramadol HCl (From [facility]) Allergy Rash Verified 01/28/25 14:29 naproxen AdvReac Upset Verified 01/28/25 14:29 Stomach Surgical History (Updated 01/28/25 @ 16:[address] Supriya Faith MD) H/O LEEP History of cholecystectomy History of appendectomy Social History (Updated 10/23/24 @ 12:03 by Ekta Cotter) household members: significant other and children Smoking Status: Current every day smoker tobacco type: cigarettes History Elective abortions Hx Para 3 Spontaneous abortions Hx # Term Pregnancies Ectopic pregnancies Hx # Pregnancies Multiple births # of living children ROS Constitutional Constitutional: Denies fatigue, fever(s) or malaise Eyes Eyes: Denies change in vision ENT HEENT: Denies dizziness or headache(s) Cardiovascular Cardiovascular: Denies chest pain, dyspnea or lightheadedness Respiratory/Chest Respiratory/Chest: Denies cough or dyspnea Gastrointestinal Gastrointestinal: Denies change in bowel habits Genitourinary Genitourinary: Denies burning urination or genital lesions Integumentary Integumentary: Denies rash Neurologic Neurologic: Denies confusion, dizziness, headache(s), numbness or weakness Vital Signs Vital Signs Vital Signs: 01/28/25 14:16 01/28/25 14:16 01/28/25 14:17 Temperature Temperature Source Pulse Rate 96 Respiratory Rate Blood Pressure 139/77 H Blood Pressure Mean BP Systolic 139 BP Diastolic 77 Blood Pressure Source Blood Pressure Position Blood Pressure Location Pulse Ox 97 Oxygen Delivery Method 01/28/25 14:17 01/28/25 14:17 01/28/25 14:17 Temperature Temperature Source Temporal Pulse Rate 93 Respiratory Rate 18 Blood Pressure Blood Pressure Mean BP Systolic BP Diastolic Blood Pressure Source Blood Pressure Position Blood Pressure Location Pulse Ox Oxygen Delivery Method 01/28/25 14:17 01/28/25 14:57 Temperature 98.2 F 98.2 F Temperature Source Temporal Pulse Rate 104 H Respiratory Rate 18 Blood Pressure 139/77 H Blood Pressure Mean 97 BP Systolic BP Diastolic Blood Pressure Source Monitor Blood Pressure Position Sitting Blood Pressure Location Left Arm Pulse Ox 96 Oxygen Delivery Method Room Air Weight Weight: 106.821 kg Body Mass Index (BMI) 41.7 Physical Exam Const alert and no apparent distress General Appearance: cooperative HEENT normocephalic Resp normal respiratory effort Cardio regular rate GI soft to palpation GI Narrative: gravid, nontender, appropriate for gestational age Extremity no calf tenderness General Extremity: edema Skin no wounds Rashes: No rashes noted Psych activity/motor behavior normal Labs Labs Labs: Blood Type B POSITIVE Antibody Screen NEGATIVE Hct 36.7 % (37-47) L Hgb 12.6 g/dL (12.0-15.0) Syphilis Total Ab Nonreactive (Nonreactive) Assessment & Plan (1) Hepatitis C virus infection in mother during : PLAN: Risk benefits and alternatives to repeat section with tubal sterilization were discussed with patient her questions were answered to her satisfaction she desires to proceed. She understands that the tubal is permanent irreversible risk of failure and regret. She desires to proceed. Consents to urine tox screen. Will check CMP, CBC, hep C titer and syphilis screen. (2) Tetrahydrocannabinol (THC) use disorder, moderate, dependence: (3) Tobacco use disorder: (4) Request for sterilization: (5) Body mass index (BMI) of 40.1 to 44.9 in adult: (6) Maternal obesity syndrome in third trimester: (7) 39 weeks gestation of : (8) Advanced maternal age in in third trimester: (9) Limited care: (10) History of drug use: (11) History of section complicating :
[2025-01-28] MEDS: Azithromycin 500 MG in 0.9% Normal Saline (250mL Bag) 250 ML 255 MG IV (17:03)
--- NOTE | 2025-01-28 17:48 | OP.PCM_ITS ---
Assessment & Plan (1) Delivery outcome of liveborn infant: QUALIFIERS: Number of infants delivered: single Qualified Code(s): Z37.0 - Single live (2) delivery delivered: (3) Request for sterilization: (4) Hepatitis C virus infection in mother during : (5) Maternal obesity syndrome in third trimester: (6) Body mass index (BMI) of 40.1 to 44.9 in adult: (7) 39 weeks gestation of : (8) Advanced maternal age in in third trimester: (9) Limited care: (10) Hydradenitis: Maternal Data Information Final RA: 01/29/25 Gestational age: 39 6/7 Operative Report (OB) Details Procedure Type: low transverse Date of Procedure: 01/28/25 Procedure Start Time: 17:05 Procedure Stop Time: 18:00 Time of Delivery: 17:08 Pre-Operative Diagnosis: Repeat Elective (spont. labor) and Desires elective sterilization Post-Operative Diagnosis: Same as Pre-operative diagnosis Classification: IGOR Type of Anesthesia: Spinal Antibiotic Given: Ancef 3 grams IV x1 Drain: Byrd to straight drain Estimated Blood Loss: 800 Fluids Replaced: 300 Findings Description of surgery: The patient was taken to the operating room. She was prepped and draped in the dorsal supine position with a leftward tilt. A Pfannenstiel skin incision was made approximately 2 cm above the symphysis pubis and carried through to underlying layer fascia with the scalpel. The fascia was incised incised in the midline and extended laterally with the Vasques scissors. The fascia was dissected off the rectus muscles with blunt and sharp dissection. The rectus muscles were in the midline and the peritoneum was entered bluntly. The peritoneal incision was stretched and the bladder blade was placed. The uterine incision was made in a low transverse fashion with the scalpel and extended superiorly and inferiorly with blunt dissection. The amniotic membranes were ruptured and moderate meconium stained fluid was returned. The infant's head was brought to the incision in the flexed position and delivered without difficulty. The remainder of the was delivered with gentle traction and fundal pressure in the standard fashion. The mouth and nares were bulb suctioned. The cord was clamped and cut as the infant was stimulated. Cord clamping was not delayed. The was handed off to the waiting nursing staff. The placenta was delivered with fundal massage and gentle traction in the standard fashion. The uterus was exteriorized and cleared of all clots and d ebris. The uterine incision was closed with #1 Vicryl in a running locked fashion. A second layer of the same suture was used in an imbricating fashion. The lower uterine segment was very thin so therefore the bladder flap had to be dissected down with blunt and sharp dissection to allow adequate closure. The incision was examined and was found to be hemostatic. The left fallopian tube was identified and followed out to the fimbriated end. The LigaSure device was used to clamp seal and transect the antimesenteric portion of the tube and remove it from the cornual insertion of the uterus. The same procedure was performed on the contralateral side and excellent hemostasis was noted. The uterus was placed back into the peritoneal cavity and hemostasis was again confirmed. Hemablast was placed over the incision. The rectus muscles were examined and any bleeding was Bovie cauterized. Hemablast was placed over the rectus muscles The surgical teams outer gloves were then changed. The rectus fascia was examined and any bleeding was Bovie cauterized and the rectus fascia was closed with #1 looped PDS suture suture in a running standard fashion. The subcutaneous tissue was examining and any bleeding was Bovie cauterized. The subcutaneous tissue was reapproximated with 3-0 Vicryl suture. The skin was closed in a subcuticular fashion by the WRAP KNITTING MACHINE OPERATOR with me present in the labor and delivery suite. I performed the remainder of the procedure with assistance. All sponge, lap, and needle counts were correct. The patient was taken to her room for recovery in a stable condition. Patient had large emesis during the surgery. Anesthesia requested a chest x- ray. Has a history pneumonia during this . Was coughing some during the procedure. Chest x-ray is ordered. It should also be noted that the patient had 2 active hidradenitis lesions 1 to the right of the incision just approximately 3 cm superior to the incision and 1 to the left lower edge of the incision. Surgical findings: Vigorous male Presentation: Vertex Amniotic Membrane Rupture Type: Artificial Amniotic Fluid Description: Moderate meconium Placental Delivery Description: Expressed Placenta Disposition: Sent to Pathology Specimen collected: Yes Description of specimen(s) removed: Bilateral fallopian tubes and placenta Cord Vessel Description: 3 Vessels Cord Entanglement: None Infant A gender: Male ([place], 6lb 7 oz) (1 minute): 8 (5 minute): 9 Delayed Cord Clamping: No Clerk Television Production liquor clerk: Yes Brick Baker: Isreal Kyle Tasks completed by early childhood teacher assistant: Closing, Hemostasis: Electrocautery and Retracting Additional business development assistant?: Yes Additional Rn Medicare #2: Jamal Doe MS3 Tasks completed by business development assistant #2: Closing and Retracting Additional business development assistant?: No Complications Complications: No Admit VTE Documentation VTE Present on Admission: No VTE Mechan Device Prophylaxis: SCD's VTE Pharm Prophylaxis Ordered: Yes
[2025-01-28] MEDS: Cefazolin 3 GM in Syringe 1 EACH IV (17:49)
--- NOTE | 2025-01-28 18:08 | RAD_ITS ---
PROCEDURE: CHEST 1 VIEW (PORTABLE) 01/28/2025 REASON FOR EXAM: COUGH TECHNIQUE: Frontal view of the chest. COMPARISON: 10/23/2024 FINDINGS: Hardware: None Heart: The heart size is normal. Lungs: The lungs are clear. Bones: The bones are unremarkable. Other: RAD/Chest 1 View (Portable) IMPRESSION: No Acute Findings. Reading Location: [facility]
--- NOTE | 2025-01-28 18:08 | FALS_PTH ---
PATIENT: BASSAM OSBORN LOC: [facility] U#:[id number] AGE/SX: 39/F ROOM: WP012 RE01/28/[address]: Dr. Supriya Faith MD : 1985 BED: 1 DIS: 01/30/2025 SPEC #: [id number] RECD: 01/29/25 10:58 STATUS: ANJU RECarmela #: [id number] THI: 01/28/25 18:[address]: Supriya Faith DEPT: SURGICAL PATHOLOGY RECD BY: Royce Arceo ENTERED: 01/29/25 10:58 SP TYPE: FALL TUBES OTHR DR: No Primary Care Phys Tissues: A - Fallopian tube B - Placenta, NOS Procedures: Surgery Specimen Level II Surgery Specimen Level V HEADER OPERATION: Tubal ligation, repeat section PRE-OP DIAGNOSIS: Sterilization, section TISSUE SUBMITTED: A- Bilateral fallopian tubes, B- Placenta MICROSCOPIC DIAGNOSIS A. Fallopian tubes, bilateral salpingectomy: * No specific pathologic change, right. * No specific pathologic change, left. B. Placenta, repeat section: * Shaw term placenta (654 grams). * 3 vessel umbilical cord without inflammation. * Edematous chorioamnion without inflammation, with scattered meconium laden macrophages. * Focal subchorionic fibrin deposition. * Focal small infarct at maternal surface. MICROSCOPIC DESCRIPTION Slides are reviewed. GROSS DESCRIPTION A. Received in formalin in a container labeled with the patient's name, date of , and fallopian tubes, suture in R tube are 2 fimbriated fallopian tube segment; the right received with a suture. The right is 5.0 cm in length by 1.0 cm in diameter, and the left is 5.5 cm in length by 0.8 cm in diameter. Each displays purple-canales, smooth and glistening serosa with feathery, unremarkable fimbriated ends. Serial sections of each reveal a pinpoint lumen. [employer] Route Aide sections:A1. Right fimbriated end, trisected with cross-sectionA2. Left fimbriated end, bisected with cross-sections B. Received fresh in a container labeled with the patient's name, date of , and placenta is a 17.5 x 17.0 x 4.0 cm shaw discoid placenta with a trimmed weight of 654 g. The eccentrically located white-arevalo umbilical cord exhibits 3 vessels and is 32.0 cm in length by 1.5 cm in diameter. The membranes are arevalo-canales, mucoid and slippery, with a 100% marginal attachment site. The surface is canales-green with possible meconium staining and multiple foci of white-arevalo subchorionic fibrin ranging from 1.5 x 1.0 cm to 5.8 x 5.0 cm (comprising approximately 10% of the surface). The maternal surface is previously disrupted but reapproximated to appear complete. There are red-canales cotyledons with a moderate amount of easily removed blood clot material. Serial sections reveal a 1.4 x 1.0 x 1.0 cm arevalo-pink and rubbery, wedge-shaped focus abutting the maternal surface. The remaining surfaces are red, spongy, and congested. [employer] Route Aide sections:B 1. Umbilical cordB2. Membrane rollB3. surface with largest focus of possible subchorionic fibrin (sections x 2)B4. Maternal surface with wedge-shaped rubbery focusB5. Unremarkable full-thickness section SB 01/29/2025 CPT:96402,91634d1
[2025-01-28] MEDS: Oxytocin 15 Units/NS 250ml 15 UNITS/250 ML IV.SOLN 83 UNITS IV (18:50)
--- NOTE | 2025-01-28 21:11 | PCM.PN.BLA ---
Progress Note Patient had eaten [employer] at 1300 per patient. Emergent csection needed. R/B discussed with patient.During c section, copious amounts of emesis with large pieces of food. Patient noted to be coughing and clearing throat continuousy. Decision to order chest xray to rule out aspiration. Dr. Shaver notified and plan discussed. Xray read by radiologist, noted no acute process. Dr Goldberg aware.
[2025-01-28] MEDS: HYDROmorphone 1 MG/ML Syringe IV (21:55)
[2025-01-28] MEDS: 0.9% Saline Lock 10 ML Syringe IV (21:57)
[2025-01-29] VITALS (10 sets, daily range): BP systolic 118–159; BP diastolic 68–103; PULSE 79–122; RESP 16–18; TEMP 36.2–36.8; O2SAT 96–100
[2025-01-29] MEDS: Ketorolac 30 MG/ML Syringe IV ×2 (00:06→06:31)
[2025-01-29 00:24] LABS: Pathology Specimen OB SEE PATHOLOGY REPORT
[2025-01-29 00:36] LABS: Pathology Specimen OB SEE PATHOLOGY REPORT
[2025-01-29] MEDS: oxyCODONE 5 MG Tablet PO ×5 (00:38→23:36)
[2025-01-29] MEDS: Acetaminophen 500 MG Tablet 1000 MG PO ×4 (04:12→22:31)
[2025-01-29] MEDS: Enoxaparin 40 MG/0.4 ML Syringe SC ×2 (04:15→17:25)
[2025-01-29] MEDS: NIFEdipine 10 MG Capsule PO (05:25)
[2025-01-29 06:09] LABS: Hematocrit 30.8 % (37-47); Hemoglobin 10.5 g/dL (12.0-15.0); Mean Corp Hgb Conc 34.1 g/dL (32-36); Mean Corpuscular Hgb 30.8 pg (27.0-32.0); Mean Corpuscular Volume 90.3 fL (81-99); Mean Platelet Vol. 11.4 fl (6.2-12.0); Platelet Count 286 K/mm3 (150-450); RBC Distribution Width CV 14.5 % (11.6-14.6); RBC Distribution Width SD 47.9 fl (35.1-43.9); Red Blood Count 3.41 M/mm3 (4.2-5.4); White Blood Count 18.3 K/mm3 (4.4-11.0)
[2025-01-29] MEDS: 0.9% Saline Lock 10 ML Syringe IV ×2 (06:31→12:17)
[2025-01-29] MEDS: Senna/Docusate Sodium 1 Tablet PO (09:37)
[2025-01-29] MEDS: NIFEdipine 30 MG Tablet PO (09:37)
[2025-01-29] MEDS: Ibuprofen 600 MG Tablet PO ×2 (13:22→19:44)
--- NOTE | 2025-01-29 15:07 | CASEMGMT ---
Social Work Assessment Labor and Delivery Unit Patient Address: [place] [address] Phone number: [phone] Date of Referral: 01/28/25 Time of Referral:? 1444 Referred By: Supriya Faith Date of Intervention: ??01/29/25 Time of Intervention:? 1234 Reason for Referral:?hz of meth, heroin use and THC, does not have custody of her other children Sw completed chart review and acknowledges social work consult. Sw presented to bedside and introduced self to mother of baby (MOB- Radha) and father of baby (FOB- Jace). Sw explained reason for sw involvement and completed psychosocial assessment. Due to parents not being , sw asked for consent to discuss protected health information such as diagnoses and urine screens with FOB present. MOB stated that was okay. History obtained from: medical records, MOB and FOB Household composition: PAM reports that she and FOB are currently residing with her mother, Nicci Rincon at address listed above. PAM states that her mom also has custody of her sister's three children (18, 17 and 16 years old) who also reside in the home. PAM denies any housing concerns, reporting it is safe and secure. Patient's parent/guardian status:? ?Parents report that they have known each other since they were in high school together (at [employer]) and then reconnected several years ago. They have been together for 3 years, this is their second child together. No concerns regarding domestic violence or intimate partner violence reported. FOB informed sw that he also has an 18 year old daughter that he is involved with. Medical History: ?PAM is 39 year old female who is 5, para 3- now 4 following labor and delivery. PAM received inconsistent care during with [facility]. PAM presented to hospital in active labor and delivered baby on 01/28/25 via repeat at 39 weeks gestation. Baby boy, named Junito Stanton, was born weighing 6lb 7oz with apgars of 8 and 9 at one and five minutes, respectfully. PAM is bottle feeding and has Dr. Lugo chosen for pediatrics. - PAM reports that her first two deliveries were at [facility]. And her last delivery was in [place]. Educational Status:? MOB reports to completing the 11th grade, and FOAntonette states he has an 8th grade education. Financial Status: MUNIRA is employed outside of the home working for [employer]. He states that he is given a paternity leave now that baby is born. PAM is unemployed. Infant Supplies: All necessary baby supplies obtained, including: car seat, safe sleep space, clothes, diapers and wipes. Childcare/Caregiver(s):? PAM reports that she intends on being the baby's primary caregiver along with MUNIRA when he is not working. Parents report that both of their mom's are supportive and able to assist with care if necessary. Transportation:?MUNIRA has his drivers license and a vehicle. PAM does not drive. PAM states that her care was spotty because she had difficulty with transportation. Programs/Agencies Involved: ?PAM is connected to medical and food benefits through [facility]. PAM states that she is also connected to [place] through [facility] and has a future apt scheduled for February 04. - MUNIRA states that he is connected to mental health services at [facility]. ?? Children Services/Legal Issues:???PAM reports that she has former involvement with Children Services, but currently there are no open cases. PAM states that when her first two daughters were born children services got involved due to her substance use disorder. PAM has lost custody of them and does not see them (Demetraarnel- 6 years old and Jeff- 7 years old). PAM reports that they were placed in foster care, and then adopted out from the foster family. PAM then had another open case with children services last year in October of 2023 when she had her daughter, Lynne. PAM states that children services got involved at that time due to her substance use history and due to losing custody of her other two children. At that time they had a case plan that placed Lynne in the temporary custody of paternal grandma (Swetha Boswell) while parents worked on their case plan. Parents state at that time they were to complete 12 clean urine screens and get connected to treatment supports/ programs. PAM states that she was told to get connected to [facility], however she did not find them helpful so she stopped going. At that time paternal grandma filed for permanent custody of Lynne and parents agreed to that so that Children's Services would no longer be involved. - informed parents that due to maternal substance use, prior children services involvement that resulted in change in custody and parents mental health history sw will be making a referral. MUNIRA stated that if someone takes their baby away from him they will need back up because I will not allow them to take my baby from me. Alfredo explained to FOB that sw is not in control of the decisions that Children's Services makes, and that he needs to cross bridges when he gets to them. Alfredo also explained to FOB that he needs to be respectful and understanding of the process. Sw also informed FOB that due to his threats, sw will ensure that police are present on unit if/ when children services presents to talk to them. FOAntonette stated he understood this. Legal- FOB states that he has prior legal involvement where he was previously incarcerated and was on parole for charges he received in [place] for assault. MUNIRA states that he is no longer connected to legal involvement, his record cleared in December of 2023. Alfredo called [facility] and spoke to hotline screener, Ne Mcghee. Ne states the referral will most likely get staffed in order to provide parents with support and linkage to supports and services that they will benefit from at this time. Behavioral Health Issues: ??Mental Health History: MUNIRA reports that he has been diagnosed with: anxiety, major depressive disorder, manic bipolar with psychotic episodes. MUNIRA states that he is connected to mental health services at [facility] where he is also prescribed Lamictal and Abilify. PAM reports that she has been diagnosed with anxiety, depression and PTSD. PAM has previously been connected to mental health services and supports but she is not at this time. PAM is not prescribed any medications to help manage her mental health. PMA denies experiencing the blues or depression/ anxiety, however when her older daughters got removed from her custody she felt a feeling of hopelessness and helplessness. PAM states that was the only time in her life where she felt like she didn't want to be here because she had no purpose. PAM states that she has not felt that way for a long time. ??? Substance Use History: PAM has significant substance use history including: history of meth and heroin use, IV use. PAM reports that she last used methamphetamine at the end of 2022. PAM states that she does use THC daily. Alfredo informed PAM that when she came in to the Emergency Department in September of 2024 her urine screen was positive for amphetamine and THC. PAM became tearful and stated that her THC could have been laced. PAM admits that she has been admitted to several inpatient detox/ rehab/ treatment facilities, but she has slipped up from time to time. PAM states that using is her fall back on way to cope with things that she may be struggling with. FOAntonette admits to THC use. ?? Family History:?PAM disclosed that her mom also uses THC to help with her cancer. ? Drug Screens: MOB urine screen at time of admission was presumptive positive for THC. Baby meconium still pending. Family/Social Stressors:? Parents stressed and concerned due to sw need to contact children services. Parents state that they are hesitant to cooperate due to their prior involvement with Children Services has always resulted in their loss of custody. Parents report that at this time they have done everything they can to prepare for baby, and feel like if Children Services is to get involved they are going to lose what they have worked towards. PAM states that transportation was a barrier to attending scheduled appointments. PAM then had ongoing medical needs within the second and third trimester that continues to contribute to the lack of appointment. PAM admits to THC use, but was not aware of her positive urine screen for amphetamines at her ED visit in September 2024. Parents also have significant mental health history and at this time MOB is not connected to services or supports. Support Systems: Parents report that both sets of grandma's are supportive. Depression/Shaken Baby/Safe Sleeping: Sw educated parents on signs and symptoms of baby blues and depression. Sw educated parents on past traumas and how mental health can impact this journey. Parents stated that they would be able to recognize if the other parent were to struggle with their mental health. PAM states that she does not believe that is something that she has experienced in the past. Sw encouraged MOB to get connected to a mental health supports if she feels as though she is struggling. MOB states that she has connections to prior service providers that she feels comfortable getting connected to again if necessary. Sw educated parents on shaken baby prevention and ABCs of safe sleep, parents express understanding. ASSESSMENT:? MOB and baby admitted following labor and delivery. MOB with substance use history and both parents with history of mental health. FOB connected to services and prescribed pharmacological medication to help him manage his symptoms. Parents were talkative and although worried and concerned of need for sw to make referral, also expressed understanding. FOB states that he does not want them involved and will refuse to allow them to take baby out of their care. Education, support and explanation provided to FOB. MOB has history of prior involvement with children services all cases resulted in the loss of custody of her children at those times. MOB and FOB were both observed to care for baby at one point during sw conversation. FOB states that he feels comfortable caring for baby. MOB observed to hold baby and rock him to soothe him. Both parents report to having a mcmahon/ connection to baby. Although FOB presents as rough and disrespectful he was able to talk politely with sw. Safe Plan of Care for related to substance use:? Both parents report intention of continuing to smoke marijuana. Both parents state that they smoke outside of the home or in separate space of the house, wash hands/ face. Education and encouragement provided to not use around baby, and told not to be sole caregiver to baby if/ when under the influence. PLAN:?? Sw to follow up tomorrow and to inform [facility] of meconium results when available. MOB and baby to be discharged when medically ready. Parents were provided literature regarding: signs and symptoms of baby blues and mood and anxiety disorders, Help Me Grow, shaken baby prevention, ABCs of safe sleep and a list of county resources that are available for them should any needs present themselves. Francisco Newton, SOFTWARE ANALYST, ORTHOPEDICS PEDIATRIC PHYSICIAN
--- NOTE | 2025-01-29 20:46 | PCM.PN.CNM ---
Subjective Subjective Patient seen at bedside. Denies headache, vision changes, SOB or CP. Ambulating and voiding without difficulty. Not passing flatus. Lochia is minimal. Pain controlled at this time. Objective Data Objective Data Vital Signs: Vital Signs Temp Pulse Resp BP Pulse Ox O2 Del Method 98.3 F 111 H 16 135/83 H 97 Room Air 01/29/25 19:46 01/29/25 19:46 01/29/25 19:46 01/29/25 19:46 01/29/25 19:46 01/29/25 19:46 Oxygen Delivery Method Room Air Weight: 235 lb 8 oz Body Mass Index (BMI) 41.7 Intake & Output: Intake and Output for Last 24 Hours 01/27/25 01/28/25 01/29/25 23:59 23:59 23:59 Intake Total 3051.15 / 3051.15 483.85 / 483.85 Output Total 1050 / 1050 700 / 700 Balance 2000.15 / 2000.15 -216.15 / -216.15 Lab / Micro Data Attestation: I reviewed the patient's lab results. 01/29/25 05:50 01/28/25 14:45 Labs: Laboratory Results - last 24 hr 01/29/25 05:50: WBC 18.3 H, RBC 3.41 L, Hgb 10.5 L, Hct 30.8 L, MCV 90.3, MCH 30.8, MCHC 34.1, RDW Std Deviation 47.9 H, RDW Coeff of Matthias 14.5, Plt Count 286, MPV 11.4 ROS Eyes Eyes: Denies blurry vision, spots in vision or tunnel vision ENT HEENT: Denies dizziness or headache(s) Cardiovascular Cardiovascular: Reports systems reviewed and no addt'l complaints, except as documented, dizziness and dyspnea Respiratory/Chest Respiratory/Chest: Reports systems reviewed and no addt'l complaints, except as documented Gastrointestinal Gastrointestinal: Reports systems reviewed and no addt'l complaints, except as documented Genitourinary Genitourinary: Reports systems reviewed and no addt'l complaints, except as documented Neurologic Neurologic: Denies abnormal speech, dizziness, headache(s), syncope or vertigo Psychiatric Psychiatric: Reports systems reviewed and no addt'l complaints, except as documented Physical Exam Const alert and no apparent distress General Appearance: cooperative Orientation / Consciousness: awake, oriented to person and oriented to place Exam Limitations: no limitations HEENT normocephalic Eyes General Eye: normal appearance of both eyes Neck full ROM Chest Chest: symmetrical chest wall rise Resp normal respiratory effort, normal air movement and clear to auscultation bilaterally Auscultation: clear to auscultation bilaterally Cardio regular rate and regular rhythm GI normal to inspection, nondistended, normoactive bowel sounds Uterus Palpation: uterus fundus firm Extremity full ROM and no calf tenderness Skin no rashes or lesions noted Neuro oriented x3 Psych mental status grossly normal and activity/motor behavior normal Assessment & Plan (1) delivery delivered: (2) Hepatitis C virus infection in mother during : (3) Tetrahydrocannabinol (THC) use disorder, moderate, dependence: (4) Tobacco use disorder: (5) Body mass index (BMI) of 40.1 to 44.9 in adult: (6) Limited care: (7) History of drug use: (8) Hepatitis: COMMENT: Hep C + (9) Smoker: COMMENT: 1/2 pack a day PLAN: Plan POD 1 Repeat C/S with tubal ligation Pain control Increase ambulation Formula feeding Started on Procardia 30 mg PO Daily- Current BP 135/83 Anticipate discharge home tomorrow
[2025-01-30] VITALS (7 sets, daily range): BP systolic 137–147; BP diastolic 71–90; PULSE 83–121; RESP 16–20; TEMP 36.7–36.8; O2SAT 98–99
[2025-01-30] MEDS: Ibuprofen 600 MG Tablet PO (02:05)
[2025-01-30] MEDS: Acetaminophen 500 MG Tablet 1000 MG PO ×2 (04:33→10:34)
[2025-01-30] MEDS: Enoxaparin 40 MG/0.4 ML Syringe SC (05:14)
[2025-01-30] MEDS: NIFEdipine 30 MG Tablet PO (10:34)
[2025-01-30] MEDS: Senna/Docusate Sodium 1 Tablet PO (10:34)
--- NOTE | 2025-01-30 12:48 | PCM.PN.OB ---
Subjective Subjective Doing well. Ambulating and voiding without difficulty. Mild lochia. Bottle feeding. Objective Data Objective Data Vital Signs: Vital Signs Temp Pulse Resp BP Pulse Ox O2 Del Method 98.2 F 118 H 18 137/71 H 99 Room Air 01/30/25 08:00 01/30/25 12:46 01/30/25 08:00 01/30/25 08:00 01/30/25 12:46 01/30/25 08:00 Oxygen Delivery Method Room Air Weight: 106.821 kg Body Mass Index (BMI) 41.7 Intake & Output: Intake and Output for Last 24 Hours 01/28/25 01/29/25 01/30/25 23:59 23:59 23:59 Intake Total 3051.15 / 3051.15 483.85 / 483.85 Output Total 1050 / 1050 700 / 700 Balance / 2000.15 -216.15 / -216.15 Lab / Micro Data 01/29/25 05:50 01/28/25 14:45 ROS Constitutional Constitutional: Denies headache(s) Cardiovascular Cardiovascular: Denies chest pain or dyspnea Gastrointestinal Gastrointestinal: Denies nausea or vomiting Genitourinary Genitourinary: Denies dysuria Physical Exam Const alert, oriented x3 and no apparent distress General Appearance: cooperative and comfortable Eyes PERRL and EOMs intact bilaterally Resp normal respiratory effort GI soft to palpation and non-tender Uterus Palpation: uterus fundus firm ( below umbilicus) Extremity normal to inspection and full ROM Neuro oriented x3 and CN's II-XII intact bilaterally Psych mental status grossly normal Assessment & Plan (1) delivery delivered: (2) Hepatitis C virus infection in mother during : (3) Request for sterilization: (4) Hepatitis: COMMENT: Hep C + (5) History of drug use: (6) Advanced maternal age in in third trimester: (7) Gestational hypertension: QUALIFIERS: Trimester: third trimester Qualified Code(s): O13.3 - Gestational [-induced] hypertension without significant proteinuria, third trimester PLAN: Plan Procardia daily. Must have appointment for BP check on Monday. Reviewed precautions for BP. Does have a cuff at home
--- NOTE | 2025-01-30 12:51 | PCM.DC.SUM ---
Providers Date of Admission: 01/28/25 Date of Discharge: 01/30/25 Primary Care Physician: No Primary Care Phys Reason For Visit: REPEAT Diagnosis Discharge Diagnosis (1) delivery delivered: Status: Acute Code(s): O82 - Encounter for delivery without indication (2) Hepatitis C virus infection in mother during : Status: Acute Code(s): O98.419 - Viral hepatitis complicating , unspecified trimester; B19.20 - Unspecified viral hepatitis C without hepatic coma (3) Request for sterilization: Status: Acute Code(s): Z30.2 - Encounter for sterilization (4) Hepatitis: Status: Acute Code(s): K75.9 - Inflammatory liver disease, unspecified (5) History of drug use: Status: Acute Code(s): F19.91 - Other psychoactive substance use, unspecified, in remission (6) Advanced maternal age in in third trimester: Status: Acute (7) Gestational hypertension: Status: Acute Code(s): O13.9 - Gestational [-induced] hypertension without significant proteinuria, unspecified trimester Qualifiers: Trimester: third trimester Qualified Code(s): O13.3 - Gestational [-induced] hypertension without significant proteinuria, third trimester Plan Procardia daily. Must have appointment for BP check on Monday. Reviewed precautions for BP. Does have a cuff at home Medications at Discharge Home Medications vitamin no.49-iron fum-folic acid 6.75 mg iron-200 mcg tablet (Mini ) 1 tab PO DAILY 10/23/24 albuterol sulfate 90 mcg/actuation aerosol inhaler 2 puff inhalation Q6H PRN PRN wheezing 01/28/25 acetaminophen 500 mg tablet 1,000 mg (2 x 500 mg) PO Q6H PRN pain #30 tabs 01/30/25 nifedipine 30 mg tablet,extended release 24 hr 30 mg PO DAILY #30 tabs 01/30/25 oxycodone 5 mg tablet 5 mg PO Q6H PRN PRN Pain Score 4-10 3 days #10 tabs 01/30/25 Hospital Course Operations section Summary of Care Provided Minutes Spent on Discharge: 20 Hospital Course: Admitted in labor. Repeat . Elevated BP. Started on procardia. CPS consult for drug hx. Physical Exam Const alert General Appearance: cooperative GI GI Narrative: soft, moderate distention, fundus firm, appropriately tender. Abdominal bandage clean dry and intact Weight / BMI Weight Weight: 106.821 kg Body Mass Index (BMI) 41.7 ABG / Lab / Microbiology Data 01/29/25 05:50 01/28/25 14:45 D/C Instructions Discharge Diet: No restrictions May resume sexual activity in: 4-6 weeks Lifting Restrictions: 20 pounds Additional Activity Instructions: Nothing in the vagina for 4-6 weeks. You may return to work/school in 6 weeks. Call your doctor if your incision/area has: Continuous Slow Oozing, Sudden Increased Bleeding, Increased Pain/ Swelling, Increased Redness and Foul Smelling Discharge Call your doctor if you observe: Fever of 101 or Higher and Using more than 1 pad per hour (for 2 hours) Suture Line Care: Avoid Pulling/Pushing and Avoid Pinching/Bending Cleanse incision/area with: Keep Dressing Clean & Dry DC O2, CPAP, BIPAP Needs Home O2 Discharge instructions: No Please Follow Up With: Supriya Faith MD When: Call to make an appointment for an incision check in 1-2 [phone]. You will need a post check in 6 weeks. Meaningful Use Info Meaningful Use Meaningful Use Diagnoses (Choose all that apply): None applicable Ischemic Stroke Statin Dosing Therapy Reference: STATIN DOSE THERAPY REFERENCE: * Patients > 75 years receive moderate or high dose statin therapy. * Patients 75 years or YOUNGER should receive HIGH intensity statin dose unless contraindicated. You will be required to document reason for non-treatment if statin daily dose does not meet guidelines. HIGH DOSE STATIN THERAPY DAILY Atorvastatin > than or = to 40 mg Rosuvastatin > than or = to 20 mg Amlodipine + Atorvastatin > than or = to 2.5/40 mg Ezetimibe + Simvastatin 10/80 mg Simvastatin 80mg Discharge Plan Admission Admit Date/Time: 01/28/25 13:43 Primary Reason for Your Visit: labor Attending Provider: Supriya Faith Primary Care Provider: Care Physician,Veena Primary Discharge Orders/Prescriptions Prescriptions: New oxycodone 5 mg Tablet 5 mg PO Q6H PRN PRN (Reason: Pain Score 4-10) 3 Days Qty: 10 0RF nifedipine 30 mg Tablet Extended Release 24hr 30 mg PO DAILY Qty: 30 1RF acetaminophen 500 mg Tablet 1,000 mg PO Q6H PRN (Reason: pain) Qty: 30 0RF Continued albuterol sulfate 90 mcg/actuation HFA aerosol inhaler 2 puff INHALATION Q6H PRN PRN (Reason: wheezing) Mini 6.75 mg iron- 200 mcg tablet 1 tab PO DAILY Referrals / Follow Up: Care Physician,No Primary [Primary Care Provider] - Disposition Disposition (needs filled in before D/C Order can be placed): Home, Self Care
--- NOTE | 2025-01-30 13:12 | CASEMGMT ---
Social Work Brief Assessment - Labor and Delivery Unit Patient Address: [address] [place] [address] [place], [place] Phone number: [phone] Date and time of intervention:? 01/30/25, 1150 History:? Sw informed that MOB and baby are medically ready for discharge today. Sw called [facility] and asked to talk to hotline screener that sw made referral to yesterday. Sw spoke to Ne Mcghee. Sw asked on status regarding referral made. Ne states that at this time it is okay for baby to be discharged with mother whenever medically ready. Ne states that when the meconium results are returned sw needs to inform the agency of those results, which will determine their involvement or not. Ne stated that parents are welcome to call into their agency at any time if they have any needs or concerns. Alfredo presented to beside and informed MOB and FOB that per children services it is okay for baby to be discharged with them today. Parents express understanding and eagerness to go home. Sw informed bedside RN and lap winding machine operator of information received from Children Services. Assessment:? MOB sitting on bed comfortably while baby laying swaddled in bassinet. FOB walking around room preparing for discharge. MOB reports that she is slightly tired, but is happy to go home today. MOB reports to having a mcmahon/ connection with baby, and states that she feels things are going well. Plan:??MOB and baby to be discharged when medically ready. Sw to follow up as needed/ requested. Sw to inform [facility] of results of meconium testing. ? Francisco Newton, FIBER OPTIC ASSEMBLER, RIVETING MACHINE OPERATOR AUTOMATIC
[2025-01-30 20:08] LABS: HCV Quant. RNA PCR 2210000 IU/mL (.); HCV log 10 6.344 (.)
== END 2025-01-30 15:20 | disposition home or self-care (01) | DRG 539 ==
PROVIDERS: Admitting Provider Obstetrics & Gynecology; Referring Provider Obstetrics & Gynecology; Visit Provider Obstetrics & Gynecology
DX: O34.219 Maternal care for unspecified type scar from previous cesarean delivery (principal); B18.2 Chronic viral hepatitis C; O99.324 Drug use complicating childbirth; O99.214 Obesity complicating childbirth; F12.20 Cannabis dependence, uncomplicated; F17.210 Nicotine dependence, cigarettes, uncomplicated; L73.2 Hidradenitis suppurativa; K91.81 Other intraoperative complications of digestive system; O98.42 Viral hepatitis complicating childbirth; O99.334 Smoking (tobacco) complicating childbirth; O77.0 Labor and delivery complicated by meconium in amniotic fluid; O13.4 Gestational [pregnancy-induced] hypertension without significant proteinuria, complicating childbirth; Z30.2 Encounter for sterilization; O99.62 Diseases of the digestive system complicating childbirth; O21.8 Other vomiting complicating pregnancy; O99.72 Diseases of the skin and subcutaneous tissue complicating childbirth; Z37.0 Single live birth; Z3A.39 39 weeks gestation of pregnancy; O9A.22 Injury, poisoning and certain other consequences of external causes complicating childbirth; T46.5X6A Underdosing of other antihypertensive drugs, initial encounter; Z91.148 Patient's other noncompliance with medication regimen for other reason
CPT/HCPCS: 59025; 59050; 71045; 80053; 80307; 85025; 85027; 86780; 86850; 86900; 86901; 87522; 88302; 88307; 99221; A4216; G0378; J2405